=== PATIENT | female | born 1940 | race Caucasian/White ===

== ENCOUNTER 2023-09-29 11:27 | Outpatient (CLI) | payer MEDICARE, OTHER, SELFPAY ==
--- NOTE | 2023-09-29 12:00 | CT_ITS ---
WS: [id number] CT LUMBAR SPINE, noncontrast. HISTORY: Left-sided sciatica. TECHNIQUE: Contiguous 2.0 mm axial imaging are performed. Sagittal and coronal reformats are submitte d and reviewed. All CT scans at [facility] use at least one of these dose optimization techni ques: automated exposure control; mA and/or kV adjustment per patient size (includes targeted exams w here dose is matched to clinical indication); or iterative reconstruction. IV contrast: None DLP: 337.04 mGy.cm COMPARISON: None available. Severe scoliosis lumbar spine. There is marked RIGHT lateral subluxation of the L4 vertebral body by 1.8 cm. Invagination of the LEFT lateral L3 and L4 vertebral bodies with bony fusion. Disc spaces are all asymmetrically narrowed. Pseudoarthrosis RIGHT L5-S1. L1-2: Normal. L2-3: Mild disc bulging. No stenosis. L3-4: Osteophytic ridging and facet arthritis. No stenosis. L4-5: Asymmetric disc bulging. There is significant osteophyte encroachment upon the ventral canal an d the foramina. There are large osteophytes encroaching upon the subarticular recess. Severe central and bilateral subarticular recess and LEFT foraminal stenosis. There is a large osteophyte in the LEF T foramen contacting the exiting LEFT L4 nerve root. L5-S1: Osteophytic ridging and annular disc bulging. Facet joint arthritis. Mild LEFT and moderate RI GHT foraminal stenosis. Prior cholecystectomy. Atherosclerosis aorta. IMPRESSION: 1. Severe advanced degenerative scoliosis in the lower lumbar spine is chronic. 2. RIGHT lateral subluxation of L4. 3. LEFT lateral L3 and L4 vertebral bodies with contiguous bony fusion. 4. L4-5: Severe central, bilateral subarticular recess and LEFT foraminal stenosis. There is a large bony osteophyte in the LEFT foramen contacting the exiting LEFT L4 nerve root. 5. L5-S1: Moderate RIGHT and mild LEFT foraminal stenosis.
== END 2023-09-29 11:28 | disposition home or self-care (01) ==
LOC: RAD 11:28
PROVIDERS: PCP Nurse Practitioner Family; Visit Provider Family Medicine
DX: M51.27 Other intervertebral disc displacement, lumbosacral region (principal); M54.32 Sciatica, left side; M41.56 Other secondary scoliosis, lumbar region; M43.26 Fusion of spine, lumbar region; M48.07 Spinal stenosis, lumbosacral region; M25.78 Osteophyte, vertebrae
CPT/HCPCS: 72131

== ENCOUNTER → 2023-09-29 13:02 | Outpatient (BNVA) | payer MEDICARE, OTHER, SELFPAY | PROVIDERS: Family Provider Nurse Practitioner; PCP Nurse Practitioner; Visit Provider Dermatology | DX: Z85.828 Personal history of other malignant neoplasm of skin (principal); L82.1 Other seborrheic keratosis; L57.0 Actinic keratosis; S60.011A Contusion of right thumb without damage to nail, initial encounter; X58.XXXA Exposure to other specified factors, initial encounter; D18.01 Hemangioma of skin and subcutaneous tissue; L85.3 Xerosis cutis | CPT/HCPCS: 17000; 72131; 99203 ==

== ENCOUNTER → 2023-10-03 13:59 | Outpatient (BNVA) | payer MEDICARE, OTHER, SELFPAY | PROVIDERS: PCP Nurse Practitioner Family; Referring Provider Family Medicine; Visit Provider Orthopaedic Surgery | DX: M48.062 Spinal stenosis, lumbar region with neurogenic claudication (principal); M51.36 Other intervertebral disc degeneration, lumbar region; M41.50 Other secondary scoliosis, site unspecified | CPT/HCPCS: 72100; 99204 ==

== ENCOUNTER 2023-10-28 07:45 | Outpatient (CLI) | payer MEDICARE, OTHER, SELFPAY ==
--- NOTE | 2023-10-28 08:30 | IR_ITS ---
WS: [id number] LUMBAR MYELOGRAM HISTORY: lumbar pain COMPARISON: CT 09/29/2023 FLUOROSCOPY TIME: 6min [id number] # of spot films: 1 Procedure, risks and complications were explained to the patient. Risks including bleeding, infection , headaches, allergic reaction and seizures. Consent has been obtained. With the patient in prone position the skin over the lumbar region is cleansed with ChloraPrep and an esthetized with lidocaine. 22-gauge spinal needle is inserted into the thecal sac at several differen t levels. Unsuccessful at each level of entering the subarachnoid space. After the third attempt no a dditional levels were stopped. Large osteophytes were obstructing the needle path. Patient did complain of leg weakness and numbness after the procedure which slowly improved. Patient was directed to return to the radiology department or the emergency room if symptoms progressed. Nirmala ent's daughter was with her and they were proceeding to pain management from radiology. IMPRESSION: Unsuccessful attempt at lumbar myelogram. Access was attempted at 3 different levels. There is severe facet joint arthritis and osteophytosis obstructing the path of the needle.
== END 2023-10-28 07:46 | disposition home or self-care (01) ==
LOC: RAD 07:45
PROVIDERS: PCP Nurse Practitioner Family; Visit Provider Orthopaedic Surgery
DX: M51.36 Other intervertebral disc degeneration, lumbar region (principal); Z53.8 Procedure and treatment not carried out for other reasons; M47.816 Spondylosis without myelopathy or radiculopathy, lumbar region; M25.78 Osteophyte, vertebrae; G89.29 Other chronic pain; M41.9 Scoliosis, unspecified; M43.8X6 Other specified deforming dorsopathies, lumbar region
CPT/HCPCS: 62304; 99204; Q9966

== ENCOUNTER → 2023-11-11 12:30 | Outpatient (BNVA) | payer MEDICARE, OTHER, SELFPAY | PROVIDERS: PCP Nurse Practitioner Family; Visit Provider Orthopaedic Surgery | DX: M48.062 Spinal stenosis, lumbar region with neurogenic claudication (principal) | CPT/HCPCS: 36415; 80053; 81001; 85025; 99214 ==

== ENCOUNTER → 2023-12-02 14:04 | Outpatient (BNVA) | payer MEDICARE, OTHER, SELFPAY | PROVIDERS: PCP Nurse Practitioner Family; Visit Provider Family Medicine | DX: Z01.818 Encounter for other preprocedural examination (principal) | CPT/HCPCS: 93005 ==

== ENCOUNTER 2023-12-05 17:04 | Inpatient (IN) | payer MEDICARE, OTHER, SELFPAY ==
[2023-12-05] VITALS (21 sets, daily range): BP systolic 119–156; BP diastolic 68–98; PULSE 50–122; RESP 9–18; TEMP 35.8–36.5; O2SAT 94–100; BMI 24.3; BMI 24.8
[2023-12-05] MEDS: sodium chloride 0.9% 1,000 ML 30 ML IV (09:50)
[2023-12-05 10:19] LABS: Basophils % 0.2 %; Eosinophils % 0.6 %; Hematocrit 41.3 % (36-47); Lymphocytes # 1.9 10^3/uL (0.8-4.8); Lymphocytes % 29.4 %; Mean Corpuscular HGB Conc 32.4 g/dL (30-55); Mean Corpuscular Volume 98.6 fl (85-98); Mean Platelet Volume 10.6 fL (7.4-10.4); Monocytes # 0.7 10^3/uL (0.2-0.9); Monocytes % 10.8 %; Neutrophils # 3.74 10^3/uL (1.8-7.7); Neutrophils % 58.7 %; Nucleated Red Blood Cells % 0 %; Platelet Count 178 10^3/cmm (157-399); Red Blood Count 4.19 10^6/uL (3.85-5.65); Red Cell Distribution Width 13.8 % (12.1-15.1); White Blood Count 6.37 10^3/uL (3.29-11.43)
--- NOTE | 2023-12-05 10:34 | P.ANESASSM_ITS ---
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 Was Beta Kezia taken within 24 hours: N/A Was Clonidine taken within 24 hours: N/A Last intake: Intake Last Liquid Date 12/04/23 Last Liquid Time 23:59 Last Solid Date 12/04/23 Last Solid Time 17:00 Social No alcohol and No tobacco Exam alert, oriented x 3, clear to auscultation bilaterally and regular rate & rhythm Airway Mallampati: Class I Dentition: full Anesthetic Plan ASA status: 2 Anesthesia: General Risk of > 500 ml blood loss (7ml/kg in children): Yes, adequate IV access and fluids planned Medications/Allergies Home Medications Medication Instructions Recorded Confirmed Last Taken Type zinc 50 mg tablet 50 mg PO DAILY 11/20/21 12/04/23 12/04/23 History mecobalamin (vitamin B12) 2,500 2,500 mcg PO DAILY 07/15/23 12/04/23 12/04/23 History mcg chewable tablet multivitamin 1 tab PO DAILY 07/15/23 12/04/23 12/04/23 History ibuprofen 200 mg tablet 200 mg PO Q6H PRN Pain 09/11/23 12/04/23 Unknown History Bone Growth Stimulator #1 ea 12/01/23 Unknown Rx Allergies Allergy/AdvReac Type Severity Reaction Status Date / Time Sulfa (Sulfonamide Allergy Mild rash Verified 12/02/23 14:28 Antibiotics) Current Medications Generic Name Dose Route Start Last Admin Trade Name Freq PRN Reason Stop Dose Admin Sodium Chloride 1,000 mls @ 30 mls/hr 12/05/23 09:15 12/05/23 09:50 Sodium Chloride 0.9% IV 12/06/23 09:14 30 mls/hr .Q24H RADHA Administration PFSH Anesthesia Medical History DDD (degenerative disc disease), lumbar Arthritis of left hip Sinusitis Nasal congestion Excessive cerumen in left ear canal Otitis externa Hearing decreased Otitis media Social History Smoking and tobacco/nicotine status: never used tobacco/nicotine Second hand smoke exposure: No Alcohol intake: never Data Anesthesia 12/05/23 09:43 12/05/23 09:43 Short CBC 12/05/23 Range/Units 09:43 WBC 6.37 (3.29-11.43) 10^3/uL Hgb 13.40 (11.27-16.99) g/dL Hct 41.3 (36-47) % MCV 98.6 H (85-98) fl Plt Count 178 (157-399) 10^3/cmm Neut % (Auto) 58.7 % Neut # (Auto) 3.74 (1.8-7.7) 10^3/uL Cardiac Studies: 2 No Data to Display
--- NOTE | 2023-12-05 10:56 | W.PM.OPSUD ---
Surgery/Procedure H&P Update DATE OF PROCEDURE: December 05, 2023 DATE H&P PERFORMED: 12/02/23 H&P UPDATE INFORMATION: I have reviewed H&P completed within last 30 days, I have examined patient prior to procedure and No changes to prior documentation PLANNED PROCEDURE: Operation Date: 12/05/23 10:40 Proposed Procedures p Spinal Fusion PSF(Not Applicable) - DO gayatri Swartz Lumbopelvic Fixation(Not Applicable) - DO gayatri Swartz Sacroiliac Joint Fusion(Bilateral) - DO gayatri Swartz Lumbar Spine Decompression Lumbar Decompression(Not Applicable) - Cj Arias DO
[2023-12-05] MEDS: ceFAZolin 2,000 MG in sodium chloride 0.9% (plus) 50 ML 100 MG IV ×2 (11:13→15:34)
[2023-12-05] MEDS: lidocaine-epi 1% 20 mL INJ INJECTION (11:45)
[2023-12-05] MEDS: vancomycin 1,000 MG SDV 1000 MG XX (12:08)
[2023-12-05] MEDS: heparin, porcine 1,000 unit/mL INJ 10 mL 10000 UNIT XX (12:09)
--- NOTE | 2023-12-05 15:24 | PM.OP ---
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 Posterior fusion L2-pelvis 2.? Instrumentation L2-S1 3.? Lumbopelvic instrumentation 4. open right Sacral iliac fusion 5. open left sacral iliac fusion 6. L3/4 laminectomy with facetectomy 7. L4/5 laminectomy with facetectomy 8. use of computer navigation / stereotactic spine 9. use of autograft from same incision 10. allograft 11. Bone marrow aspirate from right iliac crest Surgeon: Cj Arias DO Estimated blood loss (mL): 500 Procedure: 1. Posterior fusion L2-pelvis 2.? Instrumentation L2-S1 3.? Lumbopelvic instrumentation 4. open right Sacral iliac fusion 5. open left sacral iliac fusion 6. L3/4 laminectomy with facetectomy 7. L4/5 laminectomy with facetectomy 8. use of computer navigation / stereotactic spine 9. use of autograft from same incision 10. allograft 11. Bone marrow aspirate from right iliac crest Patient is brought to the operative suite.? After undergoing anesthesia, the patient had neuro monitoring attached.? Patient was then placed in the prone position on the Zach table.? All areas of impingement were well-padded.? Patient was then prepped and draped in the normal sterile fashion.? Skin incision was then made over the L2 to the sacrum using previous skin incision.? Subperiosteal dissection was made out to the transverse processes of L2 bilaterally, L3 bilaterally,?L4 bilaterally L5 bilaterally and sacral ala bilaterally.? The [employer] bone marrow aspirate kit was used to aspirate bone marrow aspirate.? This was done by using the sharp probe to open up the bone.? Aspiration was performed and then the blunt probe was then used to dissect down to through the bone tunnel.? An aspirating well drawn back a millimeter approximately 20 cc of bone marrow aspirate was used.? Admixed with the allograft and autograft bone that will be used. Next tension was brought to placing the fiducial for the computer navigation.? 2 pins were placed into the right iliac crest.? The fiducial was attached.? The C-arm was brought in and information from the C arm was then linked to the computer used for placing the screws.? Next attention was brought to placing the pedicle screws.? This was done by using the gearshift probe linked to computer navigation.? The probe was used to identify the pedicle.? Then the pedicle feeler was used followed by placement of screw.? This was done at L2 bilaterally, L3 bilaterally L4 bilaterally, L5 bilaterally and S1 bilaterally. Next attension was brought to placing the iliac screws.? This was done using the sacral ala iliac technique.? The gearshift probe linked to computer navigation was then placed through the sacral ala into the sacroiliac joint into the iliac crest.? Next the pedicle feeler was used followed by the computer navigated tap.? And then the screw was passed a 80 mm screw was placed on the right side and a 80 mm screw was placed on the left side.? Both the screws were 9.5 mm in diameter. Next attension was brought to performing the open and sacral iliac fusion.? This was done by again using the gearshift probe linked to computer navigation.? Followed by pedicle feeler followed by placing a wire and then the drill drilled over the wire and then bone graft was packed into the sacroiliac joint and into the drill hole.? And the sacroiliac screw was then placed.? This technique was done on both the right and left side. Next attention was brought to the L4/5 laminectomy of the facet joint. This was done by performing the laminectomy using high-speed bur and taken of facet joints. The previous laminectomy site was identified and delineated with curved curette and Bovie. Kerrison was then used to take down the remaining lamina as well as the medial aspect of facet joints. Ligamentum flavum was taken down from 4/5. The L5 nerve root was traced around the L5 pedicle and the L4 nerve root was traced out the L4/5 foramen which the superior articular processes were taken down in order to unroofed the foramen. There was a dural tear that occurred. There was a stitch was used to repair probable rest Gelfoam and just gentle DuraSeal were used.. Attention was then brought to the L3-4 level the laminectomy was performed using high-speed bur as well as Curettes and Kerrison rongeur. The dura was scarred down on the L3-4 level on the left side. This was taken down medially. The right side was also opened up along the medial aspect of the facet joint. Again using the high-speed bur and curved curettes and Kerrison rongeurs. The L3 nerve was traced out the L3-4 foramen the L4 nerve was traced around the L4 pedicle. Dural tear occurred and a DuraGen patch was used to repair it. Attention was then brought to attaching the rods to the screws placed in the L2 bilaterally, L3 bilaterally, L4 bilaterally, L5 bilaterally and S1 bilaterally.? This was then attached to the sacroiliac screw providing the lumbopelvic fixation.? Caps were torqued into position. Locking the construct in place. Wound was copiously irrigated and then attention was brought to decorticating the facets and transverse processes laterally.? Bone that was taken down from the lamina was used along with osteoamp fibers and sponges were packed into the lateral gutters along the facet joints.? This was done bilaterally. Wound was then closed in a layered fashion starting with the thoracolumbar fascia.? 0-vicryl was used the sub cutaneous tissue was closed with 2-0 vicryl and skin with 4-0 monocryl.? Glue was then used to seal the skin and a steril dressing was applied.? Patient was then placed in the supine position. The endotracheal tube was removed and patient was transferred to the PACU in stable condition.
--- NOTE | 2023-12-05 15:33 | XR_ITS ---
WS: [id number] Lumbar spine, C-arm fluoroscopy images, 12/05/2023 Clinical Data: OR PICS Comparison: None. Findings: Dr. Arias performed a posterior thoracolumbar sacral fusion. Impression: Posterior thoracolumbar sacral fusion.
--- NOTE | 2023-12-05 16:00 | SUR.PHASEI ---
Patient in PACU, wakes but still very drowsy. Patient has simple mask on with sats at 100%. Patient able to move all extremities. patient is laying flat on back in bed.
--- NOTE | 2023-12-05 16:06 | SUR.PHASEI ---
right radial art line removed at 1601, pressure held for 5 minutes. wrapped with coban
[2023-12-05] MEDS: fentaNYL 50 mcg/mL INJ 2mL IVP (16:21)
[2023-12-05] MEDS: sodium chloride 0.9% 1,000 ML 100 ML IV (16:53)
--- NOTE | 2023-12-05 17:05 | ANE.PACU2 ---
Inpatient post-anesthesia follow up: Airway intact: Yes Vital signs: Temperature 98.2 F Pulse Rate 91 Respiratory Rate 16 Blood Pressure 114/59 Pulse Oximetry 96 Oxygen Delivery Me thod Nasal Cannula Oxygen Flow Rate 2 Fraction of Inspir ed Oxygen Hydration adequate: Yes Nausea and vomiting: No Pain level: 1 Mental status: Baseline
--- NOTE | 2023-12-05 17:23 | SUR.PHASEI ---
patient taken to room 271. report called to Fe MORENO. patient in floor bed. Patient awake but still drowsy. 3l nc on transport. patient able to move arms and legs. patient had small skin tear to right cheek from anesthesia tape, ANN MARIE applied in pacu, reported to patients daughter. Patients IVs intact. Reyes draining. Patient laying flat and instructed to lay flat, family notified of instruction to lay flat for 24h.
[2023-12-05] MEDS: docusate sodium 100 mg Capsule PO (17:34)
[2023-12-05] MEDS: HYDROcodone-acetaminophen 5-325 mg Tablet PO (17:34)
[2023-12-05] MEDS: lactated ringers 1,000 ML 90 ML IV (17:35)
[2023-12-05] MEDS: ketorolac 30 mg/mL INJ IVP (18:18)
--- NOTE | 2023-12-05 18:31 | ECG_ITS ---
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 Measurements Intervals [place] Rate: 108 P: 0 ME: 0 QRS: 62 QRSD: 81 T: 56 QT: 353 QTc: 474 Interpretive Statements ATRIAL FIBRILLATION WITH RAPID VENTRICULAR RESPONSE MINIMAL ST DEPRESSION [0.025+ mV ST DEPRESSION] ABNORMAL RHYTHM ECG Compared to ECG 12/02/2023 14:19:07 ST (T wave) deviation now present Sinus rhythm no longer present Atrial abnormality no longer present T-wave abnormality no longer present Electronically Signed On 12-05-2023 23:11:13 CDT by Edy Ulloa M.D. [id number]
[2023-12-05] MEDS: ondansetron 2 mg/ML SDV 2 mL 4 MG IVP (19:00)
[2023-12-05] MEDS: morphine 4 mg/mL SDV 1 mL 2 MG IVP ×2 (19:12→22:25)
--- NOTE | 2023-12-05 19:38 | P.CONIM_ITS ---
Providers/Reason For Consult 2 Consulting Physician/Specialty*: Alec Rocha - Internal Medicine Reason for Consult*: Atrial fibrillation with rapid ventricular rate Requesting Physician: Dr Arias Attending Physician: Cj Arias DO Primary Care Provider: NICHOLAS Abraham History of Present Illness History of Present Illness Anjali Khan is a 83 year old female with a past medical history significant for degenerative disc disease, lumbar stenosis, neurogenic claudication, and multiple other comorbidities who presents post-op from back surgery by Dr Arias on 12/05/23 to med/surg for post-op care. On postop assessment, patient was found to be tachycardic. EKG obtained and found to have atrial fibrillation with rapid ventricular rate. Patient denies any known history of atrial fibrillation. Denies any known history of other cardiac arrhythmias. Denies any history of heart disease. Reports her father from a myocardial infarction in his 80s. She currently endorses low back pain. She just recently got some morphine prior to evaluation. Also endorses associated symptoms of nausea/upset stomach. She received Zofran about an hour ago. She denies chest pain, shortness of breath, or palpitations.. Daughter and are bedside and seem supportive. Review of Systems 2 Narrative: A complete review of systems was obtained and is negative except as stated in HPI. Medications/Allergies Home Medications Medication Instructions Recorded Confirmed Last Taken Type zinc 50 mg tablet 50 mg PO DAILY 11/20/21 12/04/23 12/04/23 History mecobalamin (vitamin B12) 2,500 2,500 mcg PO DAILY 07/15/23 12/04/23 12/04/23 History mcg chewable tablet multivitamin 1 tab PO DAILY 07/15/23 12/04/23 12/04/23 History ibuprofen 200 mg tablet 200 mg PO Q6H PRN Pain 09/11/23 12/04/23 Unknown History Bone Growth Stimulator #1 ea 12/01/23 Unknown Rx Allergies Allergy/AdvReac Type Severity Reaction Status Date / Time Sulfa (Sulfonamide Allergy Mild rash Verified 12/02/23 14:28 Antibiotics) Current Medications Generic Name Dose Route Start Last Admin Trade Name Freq PRN Reason Stop Dose Admin Hydrocodone Bitart/Acetaminophen 1 - 2 tab 12/05/23 15:28 12/05/23 17:34 Hydrocodone-Acetaminophen 5-325 Mg Tablet PO 2 tab Q4H PRN Administration MODERATE TO SEVERE PAIN Docusate Sodium 100 mg 12/05/23 18:00 12/05/23 17:34 Docusate Sodium 100 Mg Capsule PO 100 mg BID RADHA Administration Lactated Ringer's 1,000 mls @ 90 mls/hr 12/05/23 15:30 12/05/23 17:35 Lactated Ringers IV 90 mls/hr .Q11H7M RADHA Administration Ketorolac Tromethamine 30 mg 12/05/23 15:28 12/05/23 18:18 Ketorolac 30 Mg/Ml Inj IVP 30 mg Q6H PRN Administration BREAKTHROUGH PAIN Morphine Sulfate 2 mg 12/05/23 15:28 12/05/23 19:12 Morphine 4 Mg/Ml Sdv 1 Ml IVP 2 mg Q1H PRN Administration SEVERE PAIN Ondansetron HCl 4 mg 12/05/23 15:28 12/05/23 19:00 Ondansetron 2 Mg/Ml Sdv 2 Ml IVP 4 mg Q6H PRN Administration NAUSEA AND VOMITING PFSH Acute 2 PFSH: Medical History DDD (degenerative disc disease), lumbar Arthritis of left hip Sinusitis Nasal congestion Excessive cerumen in left ear canal Otitis externa Hearing decreased Otitis media Surgical History History of back surgery Family History Father Heart disease Myocardial infarction Social History Smoking and tobacco/nicotine status: never used tobacco/nicotine Second hand smoke exposure: No Alcohol intake: never Substance/Drug Use: never Vitals/I&O/Wt Last Vital Signs Temp 97.1 F L 12/05/23 18:15 Pulse 104 H 12/05/23 18:15 Resp 16 12/05/23 19:12 BP 146/92 12/05/23 18:15 Pulse Ox 97 12/05/23 19:12 O2 Del Method Room Air 12/05/23 18:15 O2 Flow Rate 1.5 12/05/23 19:20 04/12/24 04/12/24 04/12/24 06:59 14:59 22:59 Intake Total 1050 / 1050 2700 / 3750 Output Total 1400 / 1400 Balance 1050 / 1050 1300 / 2350 Weight last 48 hrs Weight 71.894 kg Weight 70.307 kg Physical Exam 2 Narrative: General: Patient is awake. Frail appearing. Head: Normocephalic. Atraumatic. EOM intact. Neck: No JVD. Cardiovascular: Irregularly irregular rhythm. No gallops. Systolic murmur. No peripheral edema. Lungs: Clear to auscultation, no use of accessory muscles, no crackles or wheezes. Skin: No jaundice. No rashes. Abdomen: Normal bowel sounds, abdomen soft and nontender. Genito Urinary: Genital exam not performed since complaints not related. Rectal: Rectal exam not performed since no symptoms indicated blood loss. Extremities: No cyanosis or clubbing. Musculoskeletal: No swollen or erythematous joints. Neurological: No myoclonus. Urinary Catheter Management: Reyes: Cath Placed During This Visit: yes Reason for Continuing Indwelling Catheter: Other Urinary Catheter Date of Insertion: 12/05/23 Urinary Catheter Time of Insertion: 11:25 Data 12/05/23 09:43 12/05/23 09:43 A&P Assessment and plan (1) Atrial fibrillation with rapid ventricular response: Post-op paroxysmal a-fib w/ rvr Telemetry monitoring [id number] of at least 3 (age, sex) Hold off on consideration of anticoagulation given post-op state Check electrolytes Start metoprolol tartrate 12.5 mg PO BID Obtain echocardiogram (2) History of back surgery: Per primary Plan Thank you for this consult. Hospitalist service will follow. Consult Attestations 2 Medical Necessity Statement: Per primary Coding Level of Care Code Acute Code for Chg Fwd Diagnoses Atrial fibrillation with rapid ventricular response I48.91 History of back surgery Z98.890
[2023-12-05 20:51] LABS: Albumin Level 3.1 g/dL (3.5-5.2); Anion Gap 14.6 (5-19); Blood Urea Nitrogen 15 mg/dL (8-23); Calcium 8.4 mg/dL (8.5-10.5); Carbon Dioxide 22 mmol/L (22-29); Chloride 109 mmol/L (98-107); Creatinine Clr Calc Pharmacy 54.3083; Glucose 147 mg/dL (65-115); Magnesium 1.6 mg/dL (1.7-2.3); Phosphorus 3.9 mg/dL (2.5-4.5); Potassium 4.6 mmol/L (3.5-5.1); Sodium 141 mmol/L (136-145)
[2023-12-05] MEDS: prochlorperazine 10 mg/2 mL Inj 5 MG IVP (22:24)
[2023-12-06] VITALS (13 sets, daily range): BP systolic 99–155; BP diastolic 53–73; PULSE 71–108; RESP 14–18; TEMP 36.4–37.5; O2SAT 93–97
[2023-12-06] MEDS: ceFAZolin 2,000 MG in sodium chloride 0.9% (plus) 50 ML 100 MG IV ×3 (00:31→16:22)
[2023-12-06] MEDS: ketorolac 30 mg/mL INJ IVP (00:39)
--- NOTE | 2023-12-06 01:57 | PC.RESP ---
patient has to remain supine for 24hours post sugery, unable to perform IS effectively at this time. Daughter at bedside, notified. No resp distress noted. Vitals taken.
[2023-12-06] MEDS: magnesium sulfate premix 2 GM/50 ML PIGGYBACK IV (03:00)
[2023-12-06] MEDS: lactated ringers 1,000 ML 90 ML IV ×2 (04:29→15:53)
--- NOTE | 2023-12-06 06:00 | USCV_ITS ---
Anjali Khan Age: 83 Gender: F : 1940 Exam Date: 12/06/2023 08:30 Ordering Phys: Alec Rocha MD Technologist: Daniel Lucas Exam Location: [facility] [place] Indication: post op a fib BP: 106 / 57 HR: 76 Rhythm: Sinus Technical Quality: Adequate MEASUREMENTS (Male / Female) Normal Values 2D ECHO LV Diastolic Diameter PLAX 4.7 cm 4.2 - 5.9 / 3.9 - 5.3 cm IVS Diastolic Thickness 0.9 cm 0.6 - 1.0 / 0.6 - 0.9 cm IVS Systolic Thickness 1.7 cm LVPW Diastolic Thickness 1.0 cm 0.6 - 1.0 / 0.6 - 0.9 cm LVPW Systolic Thickness 1.5 cm LVOT Diameter 2.0 cm LV Ejection Fraction 2D Teich 84.1 % LV Ejection Fraction MOD 2C 62.7 % LV Ejection Fraction 2C AL 63.7 % LA Diameter 3.2 cm RA Systolic Volume 4C AL 58.3 ml RA Systolic Volume 4C MOD 57.1 ml LA Sys Volume AL 41.4 cm cubed LA Sys Volume Index AL 22.4 cm cubed/m squared Aorta at Sinotubular Diameter 2.8 cm IVC Diameter 1.7 cm M-MODE LA Ao Ratio MM 1.2 AV Cusp Separation MM 1.7 cm DOPPLER AV Peak Velocity 149.0 cm/s LVOT Peak Velocity 109.0 cm/s AV Area Cont Eq vti 2.5 cm squared AV Area Cont Eq pk 2.3 cm squared MV Peak Velocity 143.0 cm/s MV Area PHT 3.8 cm squared Mitral E to A Ratio 0.9 TV Peak Velocity 404.3 cm/s TR Peak Velocity 437.0 cm/s TR Peak Gradient 76.4 mmHg TR Mean Velocity 310.0 cm/s TR Mean Gradient 44.1 mmHg TR Velocity Time Integral 131.3 cm PV Peak Velocity 72.0 cm/s RV Ejection Time 0.3 s FINDINGS Left Ventricle Normal left ventricular size and systolic function, EF 65%. No gross wall motion abnormalities. Right Ventricle Right ventricular paced to be upper limit of normal size with normal ejection fraction. Right Atrium Mildly dilated right atrium Left Atrium Normal chamber size. Mitral Valve Mild mitral valve regurgitation. Aortic Valve No gross abnormalities noted Tricuspid Valve Moderate eccentric tricuspid regurgitation. Estimated pulmonary artery peak systolic pressure of 79 mmHg with a mean pressure of 47 mmHg Pulmonic Valve Trace pulmonary valve regurgitation. Pericardium Normal pericardium without effusion. Aorta Normal ascending aorta dimension. IVC Normal inferior vena cava. CONCLUSIONS Normal left ventricular size and systolic function, EF 65%. Normal left ventricular size and systolic function, EF 65%. No gross wall motion abnormalities. Moderate eccentric tricuspid regurgitation. Severe pulmonary hypertension with an estimated pulmonary artery peak systolic pressure of 79 mmHg and a mean pressure of 47 mmHg. Mild mitral valve regurgitation. Trace pulmonary valve regurgitation. There is no pericardial effusion. There are no intracardiac masses. No similar previous studies are available for comparison Dr Ceferino Rivera MD [facility] (Electronically Signed) Final Date: 06 December 2023 16:09 S
[2023-12-06] MEDS: HYDROcodone-acetaminophen 5-325 mg Tablet PO ×2 (07:34→20:57)
[2023-12-06] MEDS: ondansetron 2 mg/ML SDV 2 mL 4 MG IVP (07:51)
[2023-12-06] MEDS: multivitamin therapeutic Tablet 1 TAB PO (08:08)
[2023-12-06] MEDS: docusate sodium 100 mg Capsule PO ×2 (08:08→17:57)
[2023-12-06] MEDS: zinc gluconate 50 mg Tablet PO (08:08)
[2023-12-06] MEDS: metoprolol tartrate 25 mg Tablet 12.5 MG PO ×2 (08:10→20:58)
--- NOTE | 2023-12-06 08:39 | PC.PHAR ---
pts daughter verified pts medication-pts daughter states the pt is not taking ultram 50mg bid prn filled 10/28/23 23d/s and gabapentin 300mg tid filled 10/03/23 30d/s-pts daughter states the pt is just taking the medications entered
[2023-12-06] MEDS: morphine 4 mg/mL SDV 1 mL 2 MG IVP ×2 (10:20→15:06)
--- NOTE | 2023-12-06 12:00 | PM.PN ---
Subjective Subjective: Patient seen at the bedside and has no new complaints. She denies chest pain, shortness of breath, palpitation. Vitals/I&O/Wt Last Vital Signs Temp 97.7 F 12/06/23 07:32 Pulse 99 12/06/23 07:32 Resp 18 12/06/23 10:20 BP 106/57 12/06/23 07:32 Pulse Ox 94 12/06/23 10:20 O2 Del Method Nasal Cannula 12/06/23 07:32 O2 Flow Rate 2 12/06/23 08:00 12/05/23 12/06/23 12/06/23 22:59 06:59 14:59 Intake Total 2700 / 3750 1081 / 4831 50 / 50 Output Total 1400 / 1400 100 / 1500 200 / 200 Balance 1300 / 2350 981 / 3331 -150 / -150 Weight last 48 hrs Weight 71.894 kg Weight 71.894 kg Weight 70.307 kg Physical Exam Const: COMMON NORMALS: no acute distress, patient oriented x3 and alert HENMT: COMMON NORMALS: normocephalic, atraumatic, external ears normal, Normal external nose present, moist oral mucous membranes and oropharynx normal HEAD & SCALP: normocephalic and atraumatic NOSE: Normal external nose present EXTERNAL EAR: Yes external ears normal Eye: COMMON NORMALS: Equal, round and reactive pupils present, EOMs intact bilaterally, conjunctivae normal and no scleral icterus CONJUNCTIVA: Yes conjunctivae normal PUPIL: Yes Equal, round and reactive pupils present Neck/C-Spine: COMMON NORMALS: full ROM, no lymphadenopathy and no JVD Chest: COMMONS NORMALS: normal inspection of the chest Resp: COMMON NORMALS: normal respiratory effort and clear to auscultation bilaterally AUSCULTATION: clear to auscultation bilaterally OTHER: No wheezes or crcakles Cardio: COMMON NORMALS: no JVD OTHER: S1, S2, irregular rate and rhythm GI: COMMON NORMALS: Normal to inspection, nondistended, normoactive bowel sounds present, Soft to palpation and non-tender PALPATION: Yes Soft to palpation Extremity: COMMON NORMALS: normal to inspection and no pedal edema Neuro: COMMON NORMALS: patient oriented x3 SENSORIUM/ORIENTATION: Yes alert OTHER: No gross focal deficits Urinary Catheter Management: Reyes: Cath Placed During This Visit: yes Reason for Continuing Indwelling Catheter: Required Immobilization for Trauma or Surgery or Anesthesia Urinary Catheter Date of Insertion: 12/05/23 Urinary Catheter Time of Insertion: 11:25 Data 12/05/23 09:43 12/05/23 20:25 A&P Assessment and plan (1) Atrial fibrillation with rapid ventricular response: -Patient developed paroxysmal atrial fibrillation with RVR post surgery -Patient has no prior history of atrial fibrillation -Patient started on metoprolol p.o. 12.5 mg twice daily, heart rate is improved. Will uptitrate dose to 25 mg twice daily as appropriate. -Echo ordered and is pending -Continue telemetry monitoring -Patient's [id number] is at least 3, will plan to start Eliquis for anticoagulation when appropriate post surgery. This was discussed with patient's daughter. -Continue to monitor, continue the supportive care (2) History of back surgery: Per primary Plan Thank you for this consult. Hospitalist service will follow. Attestations Medical Necessity Statement*: Patient requires inpatient stay for telemetry monitoring of atrial fibrillation with RVR. Coding Level of Care Code Acute Code for [facility] Fwd Diagnoses Atrial fibrillation with rapid ventricular response I48.91 History of back surgery Z98.890
--- NOTE | 2023-12-06 12:18 | PM.PN ---
Subjective Subjective: Patient is sitting up in bed no headaches. 100 feet. At this point she is complaining of back and leg pain. Vitals/I&O/Wt Last Vital Signs Temp 97.7 F 12/06/23 07:32 Pulse 99 12/06/23 07:32 Resp 18 12/06/23 10:20 BP 106/57 12/06/23 07:32 Pulse Ox 94 12/06/23 10:20 O2 Del Method Nasal Cannula 12/06/23 07:32 O2 Flow Rate 2 12/06/23 08:00 12/05/23 12/06/23 12/06/23 22:59 06:59 14:59 Intake Total 2700 / 3750 1081 / 4831 50 / 50 Output Total 1400 / 1400 100 / 1500 200 / 200 Balance 1300 / 2350 981 / 3331 -150 / -150 Weight last 48 hrs Weight 158 lb 8 oz Weight 158 lb 8 oz Weight 155 lb Physical Exam Narrative: Patient is good strength in her legs incision intact. Pain feels different than before surgery. Urinary Catheter Management: Reyes: Cath Placed During This Visit: yes Reason for Continuing Indwelling Catheter: Required Immobilization for Trauma or Surgery or Anesthesia Urinary Catheter Date of Insertion: 12/05/23 Urinary Catheter Time of Insertion: 11:25 Data 12/05/23 09:43 12/05/23 20:25 A&P Assessment and plan (1) History of back surgery: Patient is postop day 1. Keep her in bed today we will give her bathroom privileges however. At this point would like to keep her off blood thinners for couple days to allow for wound healing as well as cerebrospinal fluid leak to coagulate. Watch for headaches. Will start getting her up with physical therapy tomorrow. Case management consult on Friday for care home placement Attestations Medical Necessity Statement*: Pain control Coding Level of Care Code Acute Code for [facility] Fwd Diagnoses History of back surgery Z98.890
[2023-12-07] VITALS (7 sets, daily range): BP systolic 94–124; BP diastolic 57–68; PULSE 82–111; RESP 16–18; TEMP 36.3–36.9; O2SAT 93–97; BMI 24.8
[2023-12-07] MEDS: ketorolac 30 mg/mL INJ IVP ×2 (01:51→13:38)
[2023-12-07 03:09] LABS: Basophils % 0.1 %; Hematocrit 28.5 % (36-47); Lymphocytes # 1.4 10^3/uL (0.8-4.8); Lymphocytes % 11.6 %; Mean Corpuscular HGB Conc 32.6 g/dL (30-55); Mean Corpuscular Hemoglobin 32.2 pg (27-33); Mean Corpuscular Volume 98.6 fl (85-98); Mean Platelet Volume 10.9 fL (7.4-10.4); Monocytes # 0.6 10^3/uL (0.2-0.9); Monocytes % 5.1 %; Neutrophils # 10.26 10^3/uL (1.8-7.7); Neutrophils % 82.6 %; Nucleated Red Blood Cells % 0 %; Platelet Count 118 10^3/cmm (157-399); Red Blood Count 2.89 10^6/uL (3.85-5.65); Red Cell Distribution Width 13.9 % (12.1-15.1); White Blood Count 12.42 10^3/uL (3.29-11.43)
[2023-12-07 03:26] LABS: Anion Gap 11.5 (5-19); Blood Urea Nitrogen 19 mg/dL (8-23); Carbon Dioxide 23 mmol/L (22-29); Chloride 111 mmol/L (98-107); Creatinine Clr Calc Pharmacy 54.3083; Glucose 116 mg/dL (65-115); Phosphorus 1.9 mg/dL (2.5-4.5); Potassium 4.5 mmol/L (3.5-5.1); Sodium 141 mmol/L (136-145)
[2023-12-07] MEDS: HYDROcodone-acetaminophen 5-325 mg Tablet PO ×3 (04:52→20:55)
[2023-12-07] MEDS: lactated ringers 1,000 ML 90 ML IV ×2 (04:52→16:06)
[2023-12-07] MEDS: ondansetron 2 mg/ML SDV 2 mL 4 MG IVP (04:56)
--- NOTE | 2023-12-07 08:54 | P.PN_ITS ---
Subjective 2 Subjective: Patient seen at the bedside and has no new complaints. She denies chest pain, shortness of breath, palpitation. . Vitals/I&O/Wt Last Vital Signs Temp 97.9 F 12/07/23 07:54 Pulse 94 12/07/23 07:54 Resp 16 12/07/23 07:54 BP 111/61 12/07/23 07:54 Pulse Ox 93 12/07/23 07:54 O2 Del Method Nasal Cannula 12/07/23 07:54 O2 Flow Rate 1 12/07/23 07:54 12/06/23 12/07/23 12/07/23 22:59 06:59 14:59 Intake Total 1050 / 1100 1000 / 2100 Output Total 450 / 650 250 / 900 Balance 600 / 450 750 / 1200 Weight last 48 hrs Weight 71.94 kg Weight 71.894 kg Weight 71.894 kg Weight 70.307 kg Physical Exam 2 Const: COMMON NORMALS: no acute distress, patient oriented x3 and alert HENMT: COMMON NORMALS: normocephalic, atraumatic, external ears normal, Normal external nose present, moist oral mucous membranes and oropharynx normal HEAD & SCALP: normocephalic and atraumatic NOSE: Normal external nose present E XTERNAL EAR: Yes external ears normal Eye: COMMON NORMALS: Equal, round and reactive pupils present, EOMs intact bilaterally, conjunctivae normal and no scleral icterus CONJUNCTIVA: Yes conjunctivae normal PUPIL: Yes Equal, round and reactive pupils present Neck/C-Spine: COMMON NORMALS: full ROM, no lymphadenopathy and no JVD Chest: COMMONS NORMALS: normal inspection of the chest Resp: COMMON NORMALS: normal respiratory effort and clear to auscultation bilaterally AUSCULTATION: clear to auscultation bilaterally OTHER: No wheezes or crcakles Cardio: COMMON NORMALS: no JVD OTHER: S1, S2, regular rate and rhythm GI: COMMON NORMALS: Normal to inspection, nondistended, normoactive bowel sounds present, Soft to palpation and non-tender PALPATION: Yes Soft to palpation Extremity: COMMON NORMALS: normal to inspection and no pedal edema Neuro: COMMON NORMALS: patient oriented x3 SENSORIUM/ORIENTATION: Yes alert OTHER: No gross focal deficits Urinary Catheter Management: Reyes: Cath Placed During This Visit: yes Reason for Continuing Indwelling Catheter: Required Immobilization for Trauma or Surgery or Anesthesia Urinary Catheter Date of Insertion: 12/05/23 Urinary Catheter Time of Insertion: 11:25 Data 12/07/23 02:37 12/07/23 02:37 A&P Assessment and plan (1) Atrial fibrillation with rapid ventricular response: -Patient developed paroxysmal atrial fibrillation with RVR post surgery -Patient has no prior history of atrial fibrillation -Patient started on metoprolol p.o. 12.5 mg twice daily, heart rate is improved. Will uptitrate dose to 25 mg twice daily as appropriate. -TTE - Normal EF- 65%, no WMAs, moderate TR, severe pulmonary hypertension -Continue telemetry monitoring -Patient's [id number] is at least 3, will plan to start Eliquis for anticoagulation when appropriate post surgery. This was discussed with patient's daughter. -Continue to monitor, continue the supportive care (2) History of back surgery: Per primary Plan #Anemia -Likely from blood loss post surgery, there might also be a dilutional component -Trend Hgb -Patient may need blood transfusion Thank you for this consult. Hospitalist service will follow. Attestations 2 Medical Necessity Statement*: Patient to continue inpatient care per surgical team Coding Level of Care Code Acute Code for [facility] Fwd Diagnoses Atrial fibrillation with rapid ventricular response I48.91 History of back surgery Z98.890
[2023-12-07] MEDS: metoprolol tartrate 25 mg Tablet 12.5 MG PO ×2 (08:58→20:54)
[2023-12-07] MEDS: docusate sodium 100 mg Capsule PO (08:58)
[2023-12-07] MEDS: zinc gluconate 50 mg Tablet PO (08:59)
[2023-12-07] MEDS: multivitamin therapeutic Tablet 1 TAB PO (08:59)
--- NOTE | 2023-12-07 10:57 | PM.PN ---
Subjective Subjective: Patient seen by physical therapy they recommend care home. Patient is complaining of back pain and pain rating down her leg to her thigh does not go any further than that anymore. Which is improved since surgery. Patient complained of a headache on the left side next to her eye. Swelling has significantly improved. Patient did have confusion last night where she was. At this point we will stop the morphine. Vitals/I&O/Wt Last Vital Signs Temp 97.9 F 12/07/23 07:54 Pulse 94 12/07/23 07:54 Resp 16 12/07/23 07:54 BP 111/61 12/07/23 07:54 Pulse Ox 93 12/07/23 07:54 O2 Del Method Nasal Cannula 12/07/23 07:54 O2 Flow Rate 1 12/07/23 07:54 12/06/23 12/07/23 12/07/23 22:59 06:59 14:59 Intake Total 1050 / 1100 1000 / 2100 240 / 240 Output Total 450 / 650 250 / 900 Balance 600 / 450 750 / 1200 240 / 240 Weight last 48 hrs Weight 158 lb 9.6 oz Weight 158 lb 8 oz Weight 158 lb 8 oz Physical Exam Narrative: Patient is sitting up in chair comfortable pain controlled at this point. Urinary Catheter Management: Reyes: Cath Placed During This Visit: yes Reason for Continuing Indwelling Catheter: Required Immobilization for Trauma or Surgery or Anesthesia Urinary Catheter Date of Insertion: 12/05/23 Urinary Catheter Time of Insertion: 11:25 Data 12/07/23 02:37 12/07/23 02:37 A&P Assessment and plan (1) History of back surgery: Postop day #2 L2 to the pelvis fusion. Continue to work with physical therapy. Hold off on any blood thinners until postop day #4. Discharge planning to care home Attestations Medical Necessity Statement*: Pain control Coding Level of Care Code Acute Code for [facility] Fwd Diagnoses History of back surgery Z98.890
[2023-12-07] MEDS: trazodone 50 mg Tablet 25 MG PO (20:55)
[2023-12-08] VITALS (7 sets, daily range): BP systolic 113–131; BP diastolic 57–78; PULSE 69–110; RESP 16–18; TEMP 36.4–37; O2SAT 94–98
[2023-12-08] MEDS: HYDROcodone-acetaminophen 5-325 mg Tablet PO ×2 (02:30→08:47)
[2023-12-08] MEDS: lactated ringers 1,000 ML 90 ML IV (02:30)
[2023-12-08] MEDS: metoprolol tartrate 25 mg Tablet 12.5 MG PO (03:56)
[2023-12-08 03:57] LABS: Basophils % 0.2 %; Eosinophils % 0.3 %; Hematocrit 30.6 % (36-47); Lymphocytes # 1.4 10^3/uL (0.8-4.8); Lymphocytes % 10.4 %; Mean Corpuscular HGB Conc 31.7 g/dL (30-55); Mean Corpuscular Hemoglobin 31.9 pg (27-33); Mean Corpuscular Volume 100.7 fl (85-98); Mean Platelet Volume 11.3 fL (7.4-10.4); Monocytes # 0.8 10^3/uL (0.2-0.9); Neutrophils # 10.77 10^3/uL (1.8-7.7); Nucleated Red Blood Cells % 0 %; Platelet Count 131 10^3/cmm (157-399); Red Blood Count 3.04 10^6/uL (3.85-5.65); White Blood Count 13.12 10^3/uL (3.29-11.43)
[2023-12-08 04:09] LABS: Albumin Level 2.9 g/dL (3.5-5.2); Anion Gap 9.6 (5-19); Blood Urea Nitrogen 27 mg/dL (8-23); Calcium 9.6 mg/dL (8.5-10.5); Carbon Dioxide 26 mmol/L (22-29); Chloride 110 mmol/L (98-107); Creatinine Clr Calc Pharmacy 54.3235; Glucose 117 mg/dL (65-115); Phosphorus 1.5 mg/dL (2.5-4.5); Potassium 4.6 mmol/L (3.5-5.1); Sodium 141 mmol/L (136-145)
--- NOTE | 2023-12-08 07:30 | P.PN_ITS ---
Subjective 2 Subjective: Patient unable to sleep at night. Pain relatively controlled. Difficulty walking with physical therapy Vitals/I&O/Wt Last Vital Signs Temp 98.6 F 12/08/23 03:51 Pulse 69 12/08/23 05:33 Resp 18 12/08/23 03:51 BP 131/78 12/08/23 03:51 Pulse Ox 98 12/08/23 03:51 O2 Del Method Nasal Cannula 12/08/23 03:51 O2 Flow Rate 1 12/07/23 16:00 12/07/23 12/08/23 12/08/23 22:59 06:59 14:59 Intake Total 1170 / 4250 936 / 5186 Output Total 500 / 1450 Balance 1170 / 3300 436 / 3736 Weight last 48 hrs Weight 158 lb 9.6 oz Physical Exam 2 Narrative: Sitting up in chair. Alert and oriented Urinary Catheter Management: Reyes: Cath Placed During This Visit: yes Reason for Continuing Indwelling Catheter: Other Urinary Catheter Date of Insertion: 12/05/23 Urinary Catheter Time of Insertion: 11:25 Data 12/08/23 02:46 12/08/23 02:46 A&P Assessment and plan (1) History of back surgery: Postop day #3 spine fusion. Discharge planning Attestations 2 Medical Necessity Statement*: Pain control Coding Level of Care Code Acute Code for [facility] Fwd Diagnoses History of back surgery Z98.890
[2023-12-08] MEDS: zinc gluconate 50 mg Tablet PO (08:46)
[2023-12-08] MEDS: metoprolol tartrate 25 mg Tablet PO (08:46)
[2023-12-08] MEDS: multivitamin therapeutic Tablet 1 TAB PO (08:46)
[2023-12-08] MEDS: docusate sodium 100 mg Capsule PO (08:46)
[2023-12-08] MEDS: magnesium hydroxide 30 mL UDC PO (08:46)
--- NOTE | 2023-12-08 10:11 | PC.SOCIAL ---
IMM Update pg 2 of IMM updated and reviewed w/ patient and her daughter. Copy provided. Copy dated, initialed and placed in chart.
--- NOTE | 2023-12-08 11:02 | PC.CHAP ---
Pastoral Care Encounter/Spiritual Assessment Type of Contact [] Declined hand rug braider visit [] Patient/Family/Request visit [] Outpatient visit [] Follow-up visit [] Physician referral [] Code/Alert [x] Routine visit [] Staff referral [] Actively dying [] Patient sleeping [x] Family support [] [] Out of room [] Palliative care [] [] Receiving care in room [] Pre-surgical visit [] Trauma [] Long length of stay [] ICU visit [] Other: Relational/Emotional Strength [] Patient feels connected with others/family/visitors/staff [] Distress [] Loneliness/isolation [] Abandonment Spirituality of Patient [x] Person of Terri [] Attends Orthodox of their Terri [x] Believes in Prayer [] Reads Bible or Advent materials [] There are Spiritual issues to be addressed [employer] Interventions [x] Prayer [x] Active listening [] Non-anxious presence [x] Spiritual/emotional support [] Crisis/trauma care [] Spiritual counseling [] Bereavement support [] Provided bereavement packet [x] Provided Bible/devotional materials [] Provided toy/stuffed animal, coloring book to patient or family member [] Provided Communion [] Anointing/[place] [] Salvation [x] Completed spiritual assessment [] Other: Impact on Illness or Injury [] Angry [] Fearful [] Anxious [] Often cries [] Exhaustion [] Unable to work [] Unable to attend jehovah's witness [] Unable to walk/stand [] Unable to read [] Unable to drive [] Unable to eat/drink [] Unable to sleep [] Unable to be with family [] Patient intubated [] Other: Summary Time spent with patient 10 min
--- NOTE | 2023-12-08 12:00 | P.PN_ITS ---
Subjective 2 Subjective: No acute complaints at this time. States that pain is well controlled. Has been able to eat and drink better. Vitals/I&O/Wt Last Vital Signs Temp 98.0 F 12/08/23 07:40 Pulse 82 12/08/23 11:47 Resp 16 12/08/23 11:47 BP 113/57 12/08/23 11:47 Pulse Ox 94 12/08/23 11:47 O2 Del Method Room Air 12/08/23 11:47 O2 Flow Rate 1 12/08/23 08:18 12/07/23 12/08/23 12/08/23 22:59 06:59 14:59 Intake Total 1170 / 4250 936 / 5186 1167 / 1167 Output Total 500 / 1450 Balance 1170 / 3300 436 / 3736 1167 / 1167 Weight last 48 hrs Weight 158 lb 9.6 oz Physical Exam 2 Urinary Catheter Management: Reyes: Cath Placed During This Visit: yes Reason for Continuing Indwelling Catheter: Other Urinary Catheter Date of Insertion: 12/05/23 Urinary Catheter Time of Insertion: 11:25 Data 12/08/23 02:46 12/08/23 02:46 Coding Level of Care Code Acute Code for [facility] Fwd
[2023-12-08 12:02] LABS: SARS Covid-2 Antigen negative (Negative)
--- NOTE | 2023-12-08 12:14 | PM.DCS ---
Discharge Providers Date of Admission: 12/05/23 17:04 Date of Discharge: December 08, 2023 Attending Provider at Admission: Cj Arias DO Attending Provider at Discharge: Cj Arias DO Primary Care Provider: NICHOLAS Abraham Diagnoses at Discharge Discharge Diagnosis (1) History of back surgery: Status: Acute Reason for Visit Reason for Visit: M48.062 Physical Exam Urinary Catheter Management: Reyes: Cath Placed During This Visit: yes Reason for Continuing Indwelling Catheter: Other Urinary Catheter Date of Insertion: 12/05/23 Urinary Catheter Time of Insertion: 11:25 Discharge Data Studies Completed and Pending Completed Studies During Hospitalization Category Date Time Status XR lumbar spine 2-3V* [id number] Routine Exams 12/05/23 15:33 Completed CV. echo complete* [id number] Routine Ultrasound 12/06/23 06:00 Completed Laboratory Results WBC 13.12 10^3/uL (3.29-11.43) H 12/08/23 02:46 RBC 3.04 10^6/uL (3.85-5.65) L 12/08/23 02:46 Hgb 9.70 g/dL (11.27-16.99) L 12/08/23 02:46 Hct 30.6 % (36-47) L 12/08/23 02:46 MCV 100.7 fl (85-98) H 12/08/23 02:46 MCH 31.9 pg (27-33) 12/08/23 02:46 MCHC 31.7 g/dL (30-55) 12/08/23 02:46 RDW 14.0 % (12.1-15.1) 12/08/23 02:46 Plt Count 131 10^3/cmm (157-399) L 12/08/23 02:46 MPV 11.3 fL (7.4-10.4) H 12/08/23 02:46 Neut % (Auto) 82.0 % 12/08/23 02:46 Lymph % (Auto) 10.4 % 12/08/23 02:46 Cuming % (Auto) 6.0 % 12/08/23 02:46 Eos % (Auto) 0.3 % 12/08/23 02:46 Baso % (Auto) 0.2 % 12/08/23 02:46 Neut # (Auto) 10.77 10^3/uL (1.8-7.7) H 12/08/23 02:46 Lymph # (Auto) 1.4 10^3/uL (0.8-4.8) 12/08/23 02:46 Cuming # (Auto) 0.8 10^3/uL (0.2-0.9) 12/08/23 02:46 Eos # (Auto) 0.0 10^3/uL (0.0-0.8) 12/08/23 02:46 Baso # (Auto) 0.0 10^3/uL (0.0-0.1) 12/08/23 02:46 Nucleated RBC % (auto) 0 % 12/08/23 02:46 Nucleated RBCs # 0.0 /100WBC 12/08/23 02:46 Sodium 141 mmol/L (136-145) 12/08/23 02:46 Potassium 4.6 mmol/L (3.5-5.1) 12/08/23 02:46 Chloride 110 mmol/L (98-107) H 12/08/23 02:46 Carbon Dioxide 26 mmol/L (22-29) 12/08/23 02:46 Anion Gap 9.6 (5-19) 12/08/23 02:46 BUN 27 mg/dL (8-23) H 12/08/23 02:46 Creatinine 0.8 mg/dL (0.5-0.9) 12/08/23 02:46 GFR Calculation Not Reportable 12/08/23 02:46 Glucose 117 mg/dL (65-115) H 12/08/23 02:46 Calculated Osmolality Cancelled 12/05/23 09:43 Calcium 9.6 mg/dL (8.5-10.5) 12/08/23 02:46 Phosphorus 1.5 mg/dL (2.5-4.5) L 12/08/23 02:46 Magnesium 2.0 mg/dL (1.7-2.3) 12/07/23 02:37 Albumin 2.9 g/dL (3.5-5.2) L 12/08/23 02:46 SARS-CoV-2 Ag (Rapid) negative (Negative) 12/08/23 11:30 Blood Type B Positive 12/05/23 09:43 Rho(D) Type Rh positive 12/05/23 09:43 Antibody Screen Negative 12/05/23 09:43 Vitals Last Vital Signs Temp 98.0 F 12/08/23 07:40 Pulse 82 12/08/23 11:47 Resp 16 12/08/23 11:47 BP 113/57 12/08/23 11:47 Pulse Ox 94 12/08/23 11:47 O2 Del Method Room Air 12/08/23 11:47 O2 Flow Rate 1 12/08/23 08:18 Discharge Plan Discharge Patient Disposition: Xfer SNF Condition: Stable Prescriptions: New hydrocodone-acetaminophen 5-325 mg tablet 1 - 2 tab PO .Q4-6H Qty: 40 0RF Continued multivitamin Tablet 1 tab PO DAILY (DME) Bone Growth Stimulator See Rx Instructions .Route .MEDSUPPLY Qty: 1 0RF Rx Instructions: As directed zinc acetate 50 mg (zinc) Capsule 50 mg PO DAILY omega-3 fatty acids 1,000 mg Capsule 1,000 mg PO DAILY Vitamin B-12 1,000 mcg Tablet 1,000 mcg PO DAILY Vitamin C 500 mg Tablet 500 mg PO DAILY Aleve 220 mg Tablet 220 mg PO BID PRN (Reason: Pain) vitamin E 268 mg (400 unit) Capsule 268 mg PO DAILY Voltaren Arthritis Pain 1 % Gel 2 g TOPICAL QID PRN (Reason: Pain) Rx Instructions: apply to single elbow, wrist or hand; for hand includes palm/fingers/back of hand Blue Emu Cream See Rx Instructions .ROUTE .COMPLEX Rx Instructions: as directed as needed Discharge Orders: Discharge Order (Routine); Ordered 12/08/23 Ordered By: Cj Arias Referrals: [facility] [Outside] Cj Arias DO [Physician] - 12/18/23 10:45 am Discharge Diet: Advance as tolerated Discharge Activity: Limit activity as instructed Patient Instructions: Opioid Safety Activity Restrictions/Additional Instructions: Thank you for [facility] for your care! The following is a list of instructions, from your provider, to follow upon your discharge to ensure you have the optimal recovery from your recent injury orsurgery. Follow-up care is a rodriguez part of your treatment and safety. Be sure to make and go to all appointments, and call your doctor if you are having problems. If you do not already have a follow-up appointment made, call Dr. Arias office in the next 1-3 days to make follow up appointment for 1 weeks at [phone]. It is also a good idea to know your test results and keep a list of the medicines you take. Medications will be prescribed for you at your provider's discretion. These medications are to be used as instructed; if they are taken more often that prescribed they will not be refilled early and in most cases will not be refilled at all. > When a refill is needed,you should contact nakul olivares 2-3 business days before your prescription runs out. Medications will NOT be refilled by extension clerk providers after hours! > Many pain medications contain Tylenol (Acetaminophen). Do not consume more than 4,000 mg of Tylenol per day in total with any combination ofmedications. > Pain medications can cause constipation. Please use an over the counter stool softener as directed, while taking pain medications. Consulty our local pharmacist with questions or recommendations on stool softeners. If constipation persists, contact our office or your primary care provider. > While under our care,you are not to receive pain medications or other controlled substances from any other provider unless our office is notified and approves. Any attempts to do so will result in refusal to prescribe any further pain medications and possible dismissal from our practice. ? Your wound and/or dressing should remain clean and dry for 7 days after surgery. On postoperative day 7 we will change the dressing. Pad dry afterwards. No further dressing should be required from that point on. Do not put any creams or ointments on theincision > It is normal for there to be a small amount of discharge (bloody or blood tinged) present from a surgical wound for the first 1-3days. > The wound should be examined twice a day for signs of infection. Mild redness or bruising is to be expected but indications that an infection maybe starting would include; An increase in redness, swelling, or discharge, a foul odor present around the incision, and/or a fever greater than 101 ?F ? Showering is permitted, however we ask that you do not take a bath, sit in a whirlpool / Jacuzzi, or go swimming for 1 month. For only the first 2 days after surgery, lt wilt be necessary for you to cover your wound/dressing with plastic and tape to keep it dry. ? Walking is essential for the healing process after surgery. We would like you to slowly advance your walking. This should be done on relatively flat clear ground (inside or out) or can be done on a treadmill. Remember this goal does not have to happen all at once, slowly increase your distance and duration. This can be broken into more more than one walk per day as tolerated. Patients who walk as directed after surgery rarely require Physical Therapy. In the unlikely event this issue arises your provider will direct hospital staff to make the appropriate arrangements. ? No lifting over 5 pounds {a gallon of milk) or bending/twisting until further notice. Each of these activities places an unnecessary amount of stress onto the body and can impede the delicate healing process. > Instead of bending at the waist, keep your back straight and bend at the knees. > Instead of twisting your torso, keep your back straight and turn your entire body with your feet. ? You may sleep in any position which makes you comfortable. Many patients find comfort sleeping in a reclining chair. It is not abnormal to have difficulty sleeping for the first several weeks following your surgery. We recommend trying Benadry! or Tylenol PM as directed to help with your sleeping difficulties. Both medications are over the counter and available withoutprescription. ? NO SMOKING!!! Smoking dramatically increases the probability of developing postoperative wound infections. ? Common complaints after lumbar and/or thoracic spine surgery include, but are not limited to: numbness and/or tingling in the legs, pain around the incision and surrounding tissues, muscle spasms, or stiffness of the middle to low back. Contact our office if these symptoms persist or if an acute change occurs. ? No driving for the first 3-5days, and not while taking narcotics [] until seen at your follow-up appointment and cleared. There are no restrictions for riding on short trips, however if you take a longer trip, arrangements should be made to make regular stops to get out of the vehicle and stretch . ? Swelling is an unfortunate event that will take place with any surgery and is the primary source of your postoperative discomfort. While walking and regular approved activities helps control inflammation, there are additional steps you can take to minimizeswelling. > Place ice over the surgical site and surrounding tissue for twenty minutes, followed by applying a low/medium heat (heating pad) for an additional twenty minutes every 1-2 hours as needed for painrelief. > You may use of over the counter anti-inflammatory medications (Ibuprofen, Motrin, Aleve, Advil, etc) as directed on the package label. These types of medicines wm significantly reduce the amount of discomfort you experience after surgery from swelling. It should be noted that if you have and allergy to any of these medications, or a history of ulcers or kidney disease you should consult you primary care provider prior to starting these medications. Discharge Attestations Time Spent in Discharge Care*: less than 30 min Quality Metrics Clinical Quality Measures [ No reported AMI, CVA or VTE this stay] Coding Level of Care Code Acute Code for Chg Fwd Diagnoses History of back surgery Z98.890
--- NOTE | 2023-12-08 13:26 | PC.NURSE ---
This nurse tried to call 3 times to give report to [facility]. Message left to call this nurse back to get report on patient that will be discharging to there this afternoon.
--- NOTE | 2023-12-08 13:52 | PC.NURSE ---
This nurse gave report to Nurse Jorge at [facility]. All questions addressed at this time.
--- NOTE | 2023-12-08 14:48 | P.PN_ITS ---
Subjective 2 Subjective: Daughter reports that patient has been very sleepy, and lethargic since receiving pain medication this morning. Daughter states that patient did have another episode of elevated heart rate early this morning during therapy. States heart rate was in the 130s. Denied any chest pain or other symptoms. Medications: Reviewed: Yes Vitals/I&O/Wt Last Vital Signs Temp 98.0 F 12/08/23 07:40 Pulse 82 12/08/23 14:32 Resp 16 12/08/23 14:32 BP 113/57 12/08/23 14:32 Pulse Ox 94 12/08/23 14:32 O2 Del Method Room Air 12/08/23 11:47 O2 Flow Rate 1 12/08/23 08:18 12/07/23 12/08/23 12/08/23 22:59 06:59 14:59 Intake Total 1170 / 4250 936 / 5186 1287 / 1287 Output Total 500 / 1450 250 / 250 Balance 1170 / 3300 436 / 3736 1037 / 1037 Weight last 48 hrs Weight 158 lb 9.6 oz Physical Exam 2 Narrative: General: Cooperative patient in no apparent distress. Well developed. HEENT: Normocephalic, Atraumatic. External ears normal. Nasal passages patent without drainage. MMM. Heart: RRR. Resp: LCTA. No respiratory distress, no use of accessory muscles. Abd: Soft, non-tender. Non-distended. Extremities: No edema. Skin: No rash or lesions on exposed areas. Urinary Catheter Management: Reyes: Cath Placed During This Visit: yes, but has since been removed by the nurse Reason for Continuing Indwelling Catheter: Decision to DC Catheter Urinary Catheter Date of Insertion: 12/05/23 Urinary Catheter Time of Insertion: 11:25 Date Urinary Catheter Removed: 12/08/23 Time Urinary Catheter Discontinued: 13:00 Data 12/08/23 02:46 12/08/23 02:46 A&P Assessment and plan (1) Atrial fibrillation with rapid ventricular response: 83-year-old female who was consulted on per ortho for management on A-fib with RVR. Telemetry was reviewed. She is noted to be in sinus rhythm at this time. She has had multiple episodes of atrial fibs over the last couple of days. She is being discharged to rehab today. I discussed with the patient and her daughter that given the amount of time she has been in atrial fibrillation, with frequent conversion back into that rhythm, that she should start Eliquis for VTE PPx. We discussed that she will need to follow up with her PCP in a month for review of her heart rhythm and to reevaluate whether she needs to continue on anticoagulation, or if this can be discontinued. She is currently rate controlled on Metoprolol 25 mg BID. Will send Rx to the pharmacy. Ortho had requested anticoagulation be initiated on postop day 5, which is on 12/09/2023. Medication was sent to the [facility]. Recommended to follow-up in 1 week with PCP, and again in 1 month. Attestations 2 Medical Necessity Statement*: Per primary Coding Level of Care Code Acute Code for Chg Fwd Straight Forward/Low MDM includes number and complexity of problems actively addressed during encounter, amount and/or complexity of data reviewed/ordered and described risk of complication, morbidity or mortality of management as documented Diagnoses Atrial fibrillation with rapid ventricular response I48.91
--- NOTE | 2023-12-08 14:48 | P.DS_ITS ---
Discharge Providers Date of Admission: 12/05/23 17:04 Date of Discharge: December 08, 2023 Attending Provider at Admission: Cj Arias DO Attending Provider at Discharge: Cj Arias DO Primary Care Provider: NICHOLAS Abraham Diagnoses at Discharge Discharge Diagnosis (1) History of back surgery: Status: Acute (2) Atrial fibrillation with rapid ventricular response: Status: Acute Reason for Visit Reason for Visit: M48.062 Physical Exam Urinary Catheter Management: Reyes: Cath Placed During This Visit: yes, but has since been removed by the nurse Reason for Continuing Indwelling Catheter: Decision to DC Catheter Urinary Catheter Date of Insertion: 12/05/23 Urinary Catheter Time of Insertion: 11:25 Date Urinary Catheter Removed: 12/08/23 Time Urinary Catheter Discontinued: 13:00 Discharge Data Studies Completed and Pending Completed Studies During Hospitalization Category Date Time Status XR lumbar spine 2-3V* [id number] Routine Exams 12/05/23 15:33 Completed CV. echo complete* [id number] Routine Ultrasound 12/06/23 06:00 Completed Laboratory Results WBC 13.12 10^3/uL (3.29-11.43) H 12/08/23 02:46 RBC 3.04 10^6/uL (3.85-5.65) L 12/08/23 02:46 Hgb 9.70 g/dL (11.27-16.99) L 12/08/23 02:46 Hct 30.6 % (36-47) L 12/08/23 02:46 MCV 100.7 fl (85-98) H 12/08/23 02:46 MCH 31.9 pg (27-33) 12/08/23 02:46 MCHC 31.7 g/dL (30-55) 12/08/23 02:46 RDW 14.0 % (12.1-15.1) 12/08/23 02:46 Plt Count 131 10^3/cmm (157-399) L 12/08/23 02:46 MPV 11.3 fL (7.4-10.4) H 12/08/23 02:46 Neut % (Auto) 82.0 % 12/08/23 02:46 Lymph % (Auto) 10.4 % 12/08/23 02:46 [place] % (Auto) 6.0 % 12/08/23 02:46 Eos % (Auto) 0.3 % 12/08/23 02:46 Baso % (Auto) 0.2 % 12/08/23 02:46 Neut # (Auto) 10.77 10^3/uL (1.8-7.7) H 12/08/23 02:46 Lymph # (Auto) 1.4 10^3/uL (0.8-4.8) 12/08/23 02:46 [place] # (Auto) 0.8 10^3/uL (0.2-0.9) 12/08/23 02:46 Eos # (Auto) 0.0 10^3/uL (0.0-0.8) 12/08/23 02:46 Baso # (Auto) 0.0 10^3/uL (0.0-0.1) 12/08/23 02:46 Nucleated RBC % (auto) 0 % 12/08/23 02:46 Nucleated RBCs # 0.0 /100WBC 12/08/23 02:46 Sodium 141 mmol/L (136-145) 12/08/23 02:46 Potassium 4.6 mmol/L (3.5-5.1) 12/08/23 02:46 Chloride 110 mmol/L (98-107) H 12/08/23 02:46 Carbon Dioxide 26 mmol/L (22-29) 12/08/23 02:46 Anion Gap 9.6 (5-19) 12/08/23 02:46 BUN 27 mg/dL (8-23) H 12/08/23 02:46 Creatinine 0.8 mg/dL (0.5-0.9) 12/08/23 02:46 GFR Calculation Not Reportable 12/08/23 02:46 Glucose 117 mg/dL (65-115) H 12/08/23 02:46 Calculated Osmolality Cancelled 12/05/23 09:43 Calcium 9.6 mg/dL (8.5-10.5) 12/08/23 02:46 Phosphorus 1.5 mg/dL (2.5-4.5) L 12/08/23 02:46 Magnesium 2.0 mg/dL (1.7-2.3) 12/07/23 02:37 Albumin 2.9 g/dL (3.5-5.2) L 12/08/23 02:46 SARS-CoV-2 Ag (Rapid) negative (Negative) 12/08/23 11:30 Blood Type B Positive 12/05/23 09:43 Rho(D) Type Rh positive 12/05/23 09:43 Antibody Screen Negative 12/05/23 09:43 Vitals Last Vital Signs Temp 98.0 F 12/08/23 07:40 Pulse 82 12/08/23 14:32 Resp 16 12/08/23 14:32 BP 113/57 12/08/23 14:32 Pulse Ox 94 12/08/23 14:32 O2 Del Method Room Air 12/08/23 11:47 O2 Flow Rate 1 12/08/23 08:18 Discharge Plan Discharge Patient Disposition: Xfer SNF Condition: Stable Prescriptions: New hydrocodone-acetaminophen 5-325 mg tablet 1 - 2 tab PO .Q4-6H Qty: 40 0RF Eliquis DVT-PE Treat 30D Start 5 mg (74 tabs) tablets,dose pack See Rx Instructions .ROUTE .COMPLEX Qty: 74 0RF Rx Instructions: orally per package directions. Start on 12/09/23. Continued multivitamin Tablet 1 tab PO DAILY (DME) Bone Growth Stimulator See Rx Instructions .Route .MEDSUPPLY Qty: 1 0RF Rx Instructions: As directed zinc acetate 50 mg (zinc) Capsule 50 mg PO DAILY omega-3 fatty acids 1,000 mg Capsule 1,000 mg PO DAILY Vitamin B-12 1,000 mcg Tablet 1,000 mcg PO DAILY Vitamin C 500 mg Tablet 500 mg PO DAILY Aleve 220 mg Tablet 220 mg PO BID PRN (Reason: Pain) vitamin E 268 mg (400 unit) Capsule 268 mg PO DAILY Voltaren Arthritis Pain 1 % Gel 2 g TOPICAL QID PRN (Reason: Pain) Rx Instructions: apply to single elbow, wrist or hand; for hand includes palm/fingers/back of hand Blue Emu Cream See Rx Instructions .ROUTE .COMPLEX Rx Instructions: as directed as needed Discharge Orders: Discharge Order (Routine); Ordered 12/08/23 Ordered By: Cj Arias Referrals: [facility] [Outside] Cj Arias DO [Physician] - 12/18/23 10:45 am Jayce Jewell MD [Physician] - 12/09/23 9:30 am Discharge Diet: Advance as tolerated Discharge Activity: Limit activity as instructed Patient Instructions: Opioid Safety Activity Restrictions/Additional Instructions: Thank you for [facility] for your care! The foll owing is a list of instructions, from your provider, to follow upon your discharge to ensure you have the optimal recovery from your recent injury orsurgery. Follow-up care is a rodriguez part of your treatment and safety. Be sure to make and go to all appointments, and call your doctor if you are having problems. If you do not already have a follow-up appointment made, call Dr. Arias office in the next 1-3 days to make follow up appointment for 1 weeks at [phone]. It is also a good idea to know your test results and keep a list of the medicines you take. Medications will be prescribed for you at your provider's discretion. These medications are to be used as instructed; if they are taken more often that prescribed they will not be refilled early and in most cases will not be refilled at all. > When a refill is needed,you should contact nakul olivares 2-3 business days before your prescription runs out. Medications will NOT be refilled by alteration tailor apprentice providers after hours! > Many pain medications contain Tylenol (Acetaminophen). Do not consume more than 4,000 mg of Tylenol per day in total with any combination ofmedications. > Pain medications can cause constipation. Please use an over the counter stool softener as directed, while taking pain medications. Consulty our local pharmacist with questions or recommendations on stool softeners. If const ipation persists, contact our office or your primary care provider. > While under our care,you are not to receive pain medications or other controlled substances from any other provider unless our office is notified and approves. Any attempts to do so will result in refusal to prescribe any further pain medications and possible dismissal from our practice. ? Your wound and/or dressing should remain clean and dry for 7 days after surgery. On postoperative day 7 we will change the dressing. Pad dry afterwards. No further dressing should be required from that point on. Do not put any creams or ointments on theincision > It is normal for there to be a small amount of discharge (bloody or blood tinged) present from a surgical wound for the first 1-3days. > The wound should be examined twice a day for signs of infection. Mild redness or bruising is to be expected but indications that an infection maybe starting would include; An increase in redness, swelling, or discharge, a foul odor present around the incision, and/or a fever greater than 101 ?F ? Showering is permitted, however we ask that you do not take a bath, sit in a whirlpool / Jacuzzi, or go swimming for 1 month. For only the first 2 days after surgery, lt wilt be necessary for you to cover your wound/dressing with plastic and tape to keep it dry. ? Walking is essential for the healing process after surgery. We would like you to slowly advance your walking. This should be done on relatively flat clear ground (inside or out) or can be done on a treadmill. Remember this goal does not have to happen all at once, slowly increase your distance and duration. This can be broken into more more than one walk per day as tolerated. Patients who walk as directed after surgery rarely require Physical Therapy. In the unlikely event this issue arises your provider will direct hospital staff to make the appropriate arrangements. ? No lifting over 5 pounds {a gallon of milk) or bending/twisting until further notice. Each of these activities places an unnecessary amount of stress onto the body and can impede the delicate healing process. > Instead of bending at the waist, keep your back straight and bend at the knees. > Instead of twisting your torso, keep your back straight and turn your entire body with your feet. ? You may sleep in any position which makes you comfortable. Many patients find comfort sleeping in a reclining chair. It is not abnormal to have difficulty sleeping for the first several weeks following your surgery. We recommend trying Benadry! or Tylenol PM as directed to help with your sleeping difficulties. Both medications are over the counter and available withoutprescription. ? NO SMOKING!!! Smoking dramatically increases the probability of developing postoperative wound infections. ? Common complaints after lumbar and/or thoracic spine surgery include, but are not limited to: numbness and/or tingling in the legs, pain around the incision and surrounding tissues, muscle spasms, or stiffness of the middle to low back. Contact our office if these symptoms persist or if an acute change occurs. ? No driving for the first 3-5days, and not while taking narcotics [] until seen at your follow-up appointment and cleared. There are no restrictions for riding on short trips, however if you take a longer trip, arrangements should be made to make regular stops to get out of the vehicle and stretch . ? Swelling is an unfortunate event that will take place with any surgery and is the primary source of your postoperative discomfort. While walking and regular approved activities helps control inflammation, there are additional steps you can take to minimizeswelling. > Place ice over the surgical site and surrounding tissue for twenty minutes, followed by applying a low/medium heat (heating pad) for an additional twenty minutes every 1-2 hours as needed for painrelief. > You may use of over the counter anti-inflammatory medications (Ibuprofen, Motrin, Aleve, Advil, etc) as directed on the package label. These types of medicines wm significantly reduce the amount of discomfort you experience after surgery from swelling. It should be noted that if you have and allergy to any of these medications, or a history of ulcers or kidney disease you should consult you primary care provider prior to starting these medications. Coding Level of Care Code Acute Code for Chg Fwd Diagnoses History of back surgery Z98.890 Atrial fibrillation with rapid ventricular response I48.91
== END 2023-12-08 14:32 | disposition skilled nursing facility (03) | DRG 455 ==
LOC: MEDSURG 17:38
PROVIDERS: Anesthesiology; Internal Medicine; Student in an Organized Health Care Education/Training Program; Admitting Provider Orthopaedic Surgery; PCP Nurse Practitioner Family; Visit Provider Orthopaedic Surgery
PROC: 0SG107J Fusion of 2 or more Lumbar Vertebral Joints with Autologous Tissue Substitute, Posterior Approach, Anterior Column, Open Approach (ICD-10-PCS; principal; 2023-12-05 10:30)
PROC: 0SG107J Fusion of 2 or more Lumbar Vertebral Joints with Autologous Tissue Substitute, Posterior Approach, Anterior Column, Open Approach (ICD-10-PCS; 2023-12-05 10:30)
PROC: 0SG107J Fusion of 2 or more Lumbar Vertebral Joints with Autologous Tissue Substitute, Posterior Approach, Anterior Column, Open Approach (ICD-10-PCS; CPT 27280; 2023-12-05 10:30)
PROC: 0SG107J Fusion of 2 or more Lumbar Vertebral Joints with Autologous Tissue Substitute, Posterior Approach, Anterior Column, Open Approach (ICD-10-PCS; CPT 63005; 2023-12-05 10:30)
DX: M48.062 Spinal stenosis, lumbar region with neurogenic claudication (principal); M51.36 Other intervertebral disc degeneration, lumbar region; M41.9 Scoliosis, unspecified; M16.12 Unilateral primary osteoarthritis, left hip; Z11.52 Encounter for screening for COVID-19; I48.0 Paroxysmal atrial fibrillation; I07.1 Rheumatic tricuspid insufficiency; I27.20 Pulmonary hypertension, unspecified; D64.9 Anemia, unspecified; K13.70 Unspecified lesions of oral mucosa
CPT/HCPCS: 12345; 36415; 51702; 72100; 76000; 80069; 83735; 85018; 85025; 86850; 86900; 87426; 92610; 93005; 93306; 97110; 97116; 97162; 97530; C1713; J0330; J0690; J0780; J1100; J1170; J1644; J1885; J2270; J2371; J2405; J2704; J2710; J3010; J3370; J3475; J3490; J7030; J7120

== ENCOUNTER 2023-12-09 07:51 | Emergency (ER) | payer MEDICARE, OTHER, SELFPAY ==
[2023-12-09 08:03] VITALS: BP 139/80; PULSE 89; RESP 16; TEMP 37.4; O2SAT 91
[2023-12-09 10:03] LABS: Basophils % 0.2 %; Eosinophils # 0.1 10^3/uL (0.0-0.8); Eosinophils % 0.5 %; Hematocrit 26.8 % (36-47); Lymphocytes # 1.3 10^3/uL (0.8-4.8); Lymphocytes % 12.3 %; Mean Corpuscular HGB Conc 32.5 g/dL (30-55); Mean Corpuscular Hemoglobin 31.9 pg (27-33); Mean Corpuscular Volume 98.2 fl (85-98); Mean Platelet Volume 11.1 fL (7.4-10.4); Monocytes # 0.7 10^3/uL (0.2-0.9); Monocytes % 7.2 %; Neutrophils # 8.05 10^3/uL (1.8-7.7); Neutrophils % 79.1 %; Nucleated Red Blood Cells % 0 %; Platelet Count 162 10^3/cmm (157-399); Red Blood Count 2.73 10^6/uL (3.85-5.65); Red Cell Distribution Width 14.2 % (12.1-15.1); White Blood Count 10.17 10^3/uL (3.29-11.43)
[2023-12-09 10:20] LABS: Alanine Aminotransferase 8 U/L (0-33); Albumin Level 2.8 g/dL (3.5-5.2); Alkaline Phosphatase 79 U/L (35-105); Aspartate Amino Transferase 28 U/L (0-32); Blood Urea Nitrogen 25 mg/dL (8-23); Calcium 9.4 mg/dL (8.5-10.5); Carbon Dioxide 27 mmol/L (22-29); Chloride 111 mmol/L (98-107); Globulin 2.7 g/dL (1.3-4.6); Glucose 102 mg/dL (65-115); Osmolality Calculated 303 mOsm/kg (285-295); Sodium 144 mmol/L (136-145); Total Bilirubin 0.8 mg/dL (0.15-1.2); Total Protein 5.5 g/dL (6.6-8.7)
--- NOTE | 2023-12-09 10:28 | ED_ITS ---
HPI - Back Pain/Injury 2 General: Chief Complaint: Back Pain/Injury Stated Complaint: Lumbar Surg. Friday Time Seen by Provider: 12/09/23 07:56 History of Present Illness: Patient presents to the ER from [facility] for evaluation. Patient had back surgery on Friday by Dr. Arias. Patient's family states there is slight drainage come out of the incision site and she is heavily medicated with pain medicine and she is not producing a whole lot of urine. She was cath in the shelter and had about 300 mL out. Review of Systems 2 General: Reports: 10 or more systems reviewed and unremarkable except in HPI and below PFSH ED 2 PFSH: Medical History DDD (degenerative disc disease), lumbar Arthritis of left hip Sinusitis Nasal congestion Excessive cerumen in left ear canal Otitis externa Hearing decreased Otitis media Surgical History History of back surgery Family History Father Heart disease Myocardial infarction Social History Smoking and tobacco/nicotine status: never used tobacco/nicotine Second hand smoke exposure: No Alcohol intake: never Substance/Drug Use: never Physical Exam 2 Const: COMMON NORMALS: no acute distress, average body habitus, no limitations, healthy appearing, alert and well nourished HENMT: COMMON NORMALS: normocephalic, atraumatic, hearing grossly normal bilaterally, external ears normal, Normal external nose present, moist oral mucous membranes and oropharynx normal HEAD & SCALP: normocephalic and atraumatic NOSE: Normal external nose present EXTERNAL EAR: Yes external ears normal Neck/C-Spine: COMMON NORMALS: no JVD Chest: COMMONS NORMALS: normal inspection of the chest and normal palpation of entire chest wall Resp: COMMON NORMALS: normal respiratory effort, No retractions, No use of accessory muscles and clear to auscultation bilaterally AUSCULTATION: clear to auscultation bilaterally Cardio: COMMON NORMALS: no JVD, regular rate, regular rhythm, S1 normal heart sound present, S2 normal heart sound present, No gallops present (Cardio), No clicks present (Cardio) and No rub (Cardio) RATE: regular rate RHYTHM: r egular rhythm HEART SOUNDS: S1 normal heart sound present and S2 normal heart sound present GI: COMMON NORMALS: Normal to inspection, nondistended, normoactive bowel sounds present, Soft to palpation, non-tender and No hepatosplenomegaly present PALPATION: Yes Soft to palpation and Yes No hepatosplenomegaly present Neuro: SENSORIUM/ORIENTATION: Yes alert Course 2 Vital Signs: Vital signs: Vital Signs Temperature 99.4 F 12/09/23 08:03 Pulse Rate 113 H 12/09/23 17:09 Respiratory Rate 18 12/09/23 11:08 Blood Pressure 130/86 12/09/23 17:09 Pulse Oximetry 90 12/09/23 17:09 Oxygen Delivery Me thod Room Air 12/09/23 16:02 MDM - Back Pain/Injury Medical Decision Making Dr. Arias came down and saw the patient and she indicated him that she was having problems swallowing and urinatin Dr. Arias would prefer to have her admitted to the hospitalist with possible MRI today so if he has to go back and do surgery he can do it tomorrow morning. MRI came back and Dr. Arias calls no need for surgery. Patient was going to be discharged back to facility when noticed her heart rate was upward in the 140s. Patient does have A-fib with RVR and she ended up missing her morning dose of metoprolol. She is given dose of metoprolol here as well as Cardizem. This slowed her heart rate down approximate 100 bpm. Patient was given dose of laxative and a Reyes catheter was inserted which released about 400 cc of urine. Urinalysis was obtained and was clear. Patient will have Reyes left in place and be discharged back to shelter. Labs 12/09/23 07:22 12/09/23 07:22 Laboratory Results WBC 10.17 10^3/uL (3.29-11.43) 12/09/23 07:22 RBC 2.73 10^6/uL (3.85-5.65) L 12/09/23 07:22 Hgb 8.70 g/dL (11.27-16.99) L 12/09/23 07:22 Hct 26.8 % (36-47) L 12/09/23 07:22 MCV 98.2 fl (85-98) H 12/09/23 07:22 MCH 31.9 pg (27-33) 12/09/23 07:22 MCHC 32.5 g/dL (30-55) 12/09/23 07:22 RDW 14.2 % (12.1-15.1) 12/09/23 07:22 Plt Count 162 10^3/cmm (157-399) 12/09/23 07:22 MPV 11.1 fL (7.4-10.4) H 12/09/23 07:22 Neut % (Auto) 79.1 % 12/09/23 07:22 Lymph % (Auto) 12.3 % 12/09/23 07:22 [place] % (Auto) 7.2 % 12/09/23 07:22 Eos % (Auto) 0.5 % 12/09/23 07:22 Baso % (Auto) 0.2 % 12/09/23 07:22 Neut # (Auto) 8.05 10^3/uL (1.8-7.7) H 12/09/23 07:22 Lymph # (Auto) 1.3 10^3/uL (0.8-4.8) 12/09/23 07:22 [place] # (Auto) 0.7 10^3/uL (0.2-0.9) 12/09/23 07:22 Eos # (Auto) 0.1 10^3/uL (0.0-0.8) 12/09/23 07:22 Baso # (Auto) 0.0 10^3/uL (0.0-0.1) 12/09/23 07:22 Nucleated RBC % (auto) 0 % 12/09/23 07: Nucleated RBCs # 0.0 /100WBC 12/09/23 07:22 Sodium 144 mmol/L (136-145) 12/09/23 07:22 Potassium 5.0 mmol/L (3.5-5.1) 12/09/23 07:22 Chloride 111 mmol/L (98-107) H 12/09/23 07:22 Carbon Dioxide 27 mmol/L (22-29) 12/09/23 07:22 Anion Gap 11.0 (5-19) 12/09/23 07:22 BUN 25 mg/dL (8-23) H 12/09/23 07:22 Creatinine 0.6 mg/dL (0.5-0.9) 12/09/23 07:22 GFR Calculation Not Reportable 12/09/23 07:22 Glucose 102 mg/dL (65-115) 12/09/23 07:22 Calculated Osmolality 303 mOsm/kg (285-295) H 12/09/23 07:22 Calcium 9.4 mg/dL (8.5-10.5) 12/09/23 07:22 Total Bilirubin 0.8 mg/dL (0.15-1.2) 12/09/23 07:22 AST 28 U/L (0-32) 12/09/23 07:22 ALT 8 U/L (0-33) 12/09/23 07:22 Alkaline Phosphatase 79 U/L (35-105) 12/09/23 07:22 Total Protein 5.5 g/dL (6.6-8.7) L 12/09/23 07:22 Albumin 2.8 g/dL (3.5-5.2) L 12/09/23 07:22 Globulin 2.7 g/dL (1.3-4.6) 12/09/23 07:22 Urine Color Yellow (Yellow) 12/09/23 16:51 Urine Appearance Clear (CLEAR) 12/09/23 16:51 Urine pH 5 (5-7) 12/09/23 16:51 Ur Specific [place] 1.015 (1.005-1.030) 12/09/23 16:51 Urine Protein Neg (Negative) 12/09/23 16:51 Urine Glucose (UA) Norm (Normal) 12/09/23 16:51 Urine Ketones 1+ (Negative) H 12/09/23 16:51 Urine Blood Neg (Negative) 12/09/23 16:51 Urine Nitrate Negative (Negative) 12/09/23 16:51 Urine Bilirubin Neg (Negative) 12/09/23 16:51 Urine Urobilinogen Neg mg/dL (Negative) 12/09/23 16:51 Ur Leukocyte Esterase Negative (Negative) 12/09/23 16:51 All radiology interpretation(s) finalized by discharge EKG Data EKG 1: I personally reviewed and interpreted this EKG as follows: EKG interpretation date: 12/09/23 EKG interpretation time: 14:34 Prior EKG tracings: available for review Interpretation: Ventricular 839 beats a minute, QRS duration 74, QTc of 346, A-fib with RVR, Discharge Plan Discharge Patient Disposition: Home Clinical Impression: Acute urinary retention, Constipation due to opioid therapy Condition: Stable Prescriptions: New Movantik 25 mg tablet 25 mg PO DAILY Qty: 10 0RF Rx Instructions: must be taken on empty stomach; no food 1 hr after or 2-3 hrs before dose No Action multivitamin Tablet 1 tab PO DAILY@07 (DME) Bone Growth Stimulator See Rx Instructions .Route .MEDSUPPLY Qty: 1 0RF Rx Instructions: As directed zinc acetate 50 mg (zinc) Capsule 50 mg PO DAILY@07 omega-3 fatty acids 1,000 mg Capsule 1,000 mg PO DAILY@07 cyanocobalamin (vitamin B-12) [Vitamin B-12] 1,000 mcg Tablet 1,000 mcg PO DAILY@07 ascorbic acid (vitamin C) [Vitamin C] 500 mg Tablet 500 mg PO DAILY@07 naproxen sodium [Aleve] 220 mg Tablet 220 mg PO Q12H PRN (Reason: Pain) vitamin E 268 mg (400 unit) Capsule 268 mg PO DAILY@07 diclofenac sodium [Voltaren Arthritis Pain] 1 % Gel 2 g TOPICAL QID PRN (Reason: Pain) Rx Instructions: apply to single elbow, wrist or hand; for hand includes palm/fingers/back of hand Blue Emu Cream 1 applic topical Q6H PRN (Reason: Pain) [place]ais DVT-PE Treat 30D Start 5 mg (74 tabs) tablets,dose pack See Rx Instructions .ROUTE .COMPLEX Qty: 74 0RF Rx Instructions: orally per package directions. Start on 12/09/23. (NOT STARTED OF 12/09/23 PER DEVANTE CARRER[facility]) metoprolol tartrate 25 mg Tablet 25 mg PO BID@0900,2100 30 Days Qty: 60 0RF Rx Instructions: NOT STARTED OF 12/09/23 hydrocodone-acetaminophen 5-325 mg tablet 1 - 2 tab PO Q4H PRN (Reason: Pain) Discharge Orders: Discharge ED (Routine); Ordered 12/09/23 Ordered By: New Gonzalez Patient Instructions: Constipation (ED), Acute Urinary Retention in Women (ED) Activity Restrictions/Additional Instructions: A Reyes catheter was placed because your bladder had approximately 400 cc of urine in it. You are given a laxative here in ER which should help your bowels. You will be started on a medicine take daily while you are on opiates that will help you from getting constipated. Please follow-up with your primary care doctor within the next 7 days for removal of the Reyes catheter and reassessment of the constipation. Coding Level of Care Code ED Engineer [employer] for Sherlyn Boss
--- NOTE | 2023-12-09 10:32 | PC.PHAR ---
Addendum entered by Joanie Islas 12/09/23 12:21: MEDICATIONS ENTERED ARE FROM THE PTS MAR AND TAR-ELIQUIS DVT DOSE PACK AND METOPROLOL TARTRATE 25MG BID WRITTEN ON 12/08/23 ARE NOT ON THE PTS MAR-COLIN LOW RN FROM [facility] STATES THE DON HAS NOT PUT IN ALL THE ORDERS STATES THAT COULD BE WHY THE ELIQUIS DOSE PACK AND METOPROLOL IS NOT ON MAR - Addendum entered by Joanie Islas 12/09/23 11:25: called again and asked for mar and tar to be [phone] k[facility] states will try to refax again Addendum entered by Pilar Montilla 12/09/23 11:08: [facility] FAXING MED LIST Original Note: PT IS FROM [facility]
[2023-12-09] MEDS: sodium chloride 0.9% 500 ML 999 ML IV (11:07)
[2023-12-09 11:08] VITALS: BP 166/77; PULSE 85; RESP 18; O2SAT 93
--- NOTE | 2023-12-09 11:51 | MR_ITS ---
WS: [id number] MRI LUMBAR SPINE NONCONTRAST TECHNIQUE: Sagittal T1, T2 and STIR imaging. Axial T1 and T2 imaging. CLINICAL INFORMATION: post surgery, urinary retention, spinal fluid leak COMPARISON: CT 09/29/2023 FINDINGS: Images limited due to extensive susceptibility artifact from hardware. Postoperative changes are new since the prior CT. Pedicle screw fixation L2-S1 with bilateral sacroil iac fixation screws. Expected postoperative changes in the dorsal subcutaneous and paravertebral soft tissues from recent fusion. Repair of CSF leak with dorsal dural graft and Gelfoam packing results in expected ventral di splacement of the thecal sac at L3-L5. Mild crowding of the cauda equina nerve rootlets. No evidence of subcutaneous or paravertebral CSF collection. L1-L2: Normal. L2-L3: Mild disc bulging. Spinal canal is patent. Mild RIGHT foraminal narrowing. L3-L4: Dorsal CSF repair. Expected ventral displacement of the thecal sac from CSF leak repair. Theresa en not well visualized. Laminectomy defects. L4-L5: Dorsal CSF repair. Laminectomy defects. Expected ventral displacement of the thecal sac from C SF leak repair. Mild RIGHT foraminal narrowing. L5-S1: Mild annular bulging. Slight effacement of the ventral thecal sac. Laminectomy defects. Mild R IGHT foraminal narrowing. IMPRESSION: Images somewhat limited due to susceptibly artifact from hardware 1. Recent postoperative changes pedicle screw fixation L2-S1 with sacroiliac fixation screws. 2. No evidence of drainable fluid collection, hematoma, or abscess. No fluid collection to suggest C SF leak. 3. Dural repair at L3-L5 dorsally with Gelfoam results in expected ventral displacement of the theca l sac described above. Associated laminectomy defects. 4. Otherwise normal for postoperative purposes. Notified discussed with Dr. Arias at 12/09/2023 2:00 PM.
[2023-12-09 14:08] VITALS: BP 129/85; PULSE 133; O2SAT 93
--- NOTE | 2023-12-09 14:34 | ECG_ITS ---
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 Measurements Intervals [place] Rate: 139 P: 0 NE: 0 QRS: 54 QRSD: 74 T: 35 QT: 265 QTc: 403 Interpretive Statements ATRIAL FIBRILLATION WITH RAPID VENTRICULAR RESPONSE Compared to ECG 12/05/2023 18:40:26 ST (T wave) deviation no longer present Electronically Signed On 12-09-2023 17:39:06 CDT by Edy Ulloa M.D. [id number] f
[2023-12-09] MEDS: metoprolol tartrate 25 mg Tablet PO (14:49)
[2023-12-09] MEDS: fentaNYL 50 mcg/mL INJ 2mL 25 MCG IVP (15:07)
[2023-12-09] MEDS: ondansetron 2 mg/ML SDV 2 mL 4 MG IVP (15:07)
[2023-12-09] MEDS: dilTIAZem 5 mg/mL SDV 5 mL 10 MG IVP (15:31)
[2023-12-09 16:02] VITALS: BP 138/82; PULSE 101; O2SAT 93
[2023-12-09 16:59] LABS: Add Urine Microscopic? NO; Charge for UA Resulting for Rev
[2023-12-09] MEDS: sennosides-docusate Tablet 2 TAB PO (17:07)
[2023-12-09 17:09] VITALS: BP 130/86; PULSE 113; O2SAT 90
[2023-12-09 17:20] LABS: Bilirubin Urine Neg (Negative); Blood Urine Neg (Negative); Glucose Urine UA Norm (Normal); Ketones Urine 1+ (Negative); Leukocyte Esterase Urine Negative (Negative); Nitrate Urine Negative (Negative); Protein Urine Neg (Negative); Specific Gravity, Urine 1.015 (1.005-1.030); Urine Appearance Clear (CLEAR); Urine Color Yellow (Yellow); Urobilinogen Urine Neg (Negative); pH Urine 5 (5-7)
--- NOTE | 2023-12-09 18:10 | PC.NURSE ---
Patient was discharged back to [facility]; report was called to Kaylin RN at [facility] and all questions were addressed at time of report. Daughter Stormy was also made aware and informed of discharge instructions.
== END 2023-12-09 18:02 | disposition home or self-care (01) ==
PROVIDERS: Emergency Provider Emergency Medicine
DX: K59.03 Drug induced constipation (principal); T40.2X5A Adverse effect of other opioids, initial encounter; R33.9 Retention of urine, unspecified; Z98.890 Other specified postprocedural states
CPT/HCPCS: 51701; 51702; 72148; 80053; 81003; 85025; 93005; 96361; 96374; 96375; 99284; J2405; J3010; J3490; J7040

== ENCOUNTER 2023-12-13 12:43 | Emergency (ER) | payer MEDICARE, OTHER, SELFPAY ==
[2023-12-13] VITALS (12 sets, daily range): BP systolic 103–164; BP diastolic 56–104; PULSE 88–122; RESP 20; TEMP 37.7–38.9; O2SAT 90–100
--- NOTE | 2023-12-13 12:49 | XRR_ITS ---
PROCEDURE INFORMATION: Exam: XR Chest Exam date and time: 12/13/2023 12:59 PM Age: 83 years old Clinical indication: Patient HX: Dyspnea; Cough TECHNIQUE: Imaging protocol: Radiologic exam of the chest. Views: 1 view. COMPARISON: No relevant prior studies available. FINDINGS: Lungs: There is ill-defined haziness lower lung zones with bilateral lower lobe consolidation likely in part due to atelectasis. There is indistinct somewhat masslike opacity projecting below the right hilum, obscured by the right heart border inconclusive for lung mass. There are bibasilar pleural effusions. Pleural spaces: See Lungs finding. Heart/Mediastinum: Heart is moderately enlarged with prominence of the right heart border suggesting right-sided cardiac enlargement. Bones/joints: Unremarkable for age. XR/XR chest 1V portable [id number] IMPRESSION: 1. Cardiomegaly with bibasilar consolidation and accompanying pleural effusions. 2. Questionable right infrahilar lung mass for which continued follow-up or CT chest recommended for clarification.
--- NOTE | 2023-12-13 12:49 | CTR_ITS ---
PROCEDURE INFORMATION: Exam: CT Head Without Contrast Exam date and time: 12/13/2023 1:51 PM Age: 83 years old Clinical indication: Altered mental status/memory loss; Confusion or disorientation; Additional info: AMS TECHNIQUE: Imaging protocol: Computed tomography of the head without contrast. Radiation optimization: All CT scans at this facility use at least one of these dose optimization techniques: automated exposure control; mA and/or kV adjustment per patient size (includes targeted exams where dose is matched to clinical indication); or iterative reconstruction. COMPARISON: No relevant prior studies available. RADIATION DOSE METRICS: Total DLP (mGy-cm): 979.68 FINDINGS: Brain: No space-occupying masses. No evidence of acute infarct. Mild chronic white matter microvascular changes. Cortical sulci are unremarkable for age. Cerebral ventricles: There is a very small amount of acute intraventricular hemorrhage within the dependent portion of the lateral ventricles bilaterally. No other areas of hemorrhage are detected. Findings are of uncertain etiology. Consider occult aneurysm/vascular malformation, hypertension, anticoagulants/coagulopathy. Ventricles are not significantly dilated for patient's age. Paranasal sinuses: Visualized sinuses are unremarkable. No fluid levels. Mastoid air cells: Visualized mastoid air cells are well aerated. Bones/joints: Unremarkable. No acute fracture. Soft tissues: Unremarkable. CT/CT head wo con* [id number] IMPRESSION: Small amount of acute intraventricular hemorrhage within the dependent portion lateral ventricles of uncertain etiology as discussed above.
--- NOTE | 2023-12-13 12:59 | ECG_ITS ---
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 Measurements Intervals [place] Rate: 90 P: 77 [place]: 146 QRS: 74 QRSD: 82 T: 74 QT: 360 QTc: 441 Interpretive Statements SINUS RHYTHM Compared to ECG 12/09/2023 14:34:42 Atrial fibrillation no longer present Electronically Signed On 12-14-2023 8:10:24 CDT by Saji August M.D. [id number]
--- NOTE | 2023-12-13 13:48 | ED_ITS ---
Documented by User: Atif Cordova DO 12/14/23 06:29 HPI - Altered Mental Status 2 General: Chief Complaint: Altered Mental Status Stated Complaint: AMS Time Seen by Provider: 12/13/23 12:49 Source: family Mode of arrival: EMS History of Present Illness: 83-year-old female presents emergency ro om via EMS obtunded she will moan in response to verbal stimuli but no understandable words. Family is with her at the bedside she reports that yesterday she was normal they believe she received 2 doses of tramadol which she was allergic to and this morning was obtunded. No report of fever no vomiting or diarrhea no cough. Oxygen sat on arrival is 96 to 98% on room air. MD complaint: altered mental status Onset (ago): unknown Review of Systems 2 General: Reports: ROS unobtainable due to mental status PFSH ED 2 PFSH: Medical History DDD (degenerative disc disease), lumbar Arthritis of left hip Sinusitis Nasal congestion Excessive cerumen in left ear canal Otitis externa Hearing decreased Otitis media Surgical History History of back surgery Family History Father Heart disease Myocardial infarction Social History Smoking and tobacco/nicotine status: never used tobacco/nicotine Second hand smoke exposure: No Alcohol intake: never Substance/Drug Use: never Physical Exam 2 Const: ORIENTATION/CONSCIOUSNESS: Yes awake HENMT: COMMON NORMALS: normocephalic, atraumatic and hearing grossly normal bilaterally HEAD & SCALP: normocephalic and atraumatic Resp: COMMON NORMALS: normal respiratory effort, No retractions, No use of accessory muscles and clear to auscultation bilaterally AUSCULTATION: clear to auscultation bilaterally Cardio: COMMON NORMALS: regular rate, regular rhythm and No murmurs present (Cardio) RATE: regular rate RHYTHM: regular rhythm GI: COMMON NORMALS: Soft to palpation and No hepatosplenomegaly present A USCULTATION: Yes normoactive bowel sounds PALPATION: Yes Soft to palpation, No Tenderness to palpation present (GI), No Guarding due to palpation present (GI) and Yes No hepatosplenomegaly present Extremity: COMMON NORMALS: normal to inspection, capillary refill normal, no clubbing, cyanosis or edema, no calf tenderness and no pedal edema Neuro: PANCHO COMA SCALE: document GCS findings [place] coma scale eye opening: None [place] coma scale verbal response: None [place] coma scale motor response: Abnormal flexion [place] coma scale total score: 5 Skin: COMMON NORMALS: no rashes or lesions noted GENERAL SKIN EXAM: no rashes or lesions noted Procedures Intubation Time out performed: Yes sedative: Etomidate Mg Given: 10 paralytic: Succinylcholine Mg Given: 90 Laryngoscope: Flori ET Tube Size: 7.5 ET Tube Uncuffed: No Tube Secured Depth (cm): 22 Tube Secured Location: teeth Tube Placement Confirmation: visualized tube passing through cords, equal breath sounds bilaterally, no breath sounds over epigastrium and confirmation by capnometry Patient Tolerated Procedure: well Intubation Complications: none Course 2 Vital Signs: Vital signs: Vital Signs Temperature 101.2 F H 12/13/23 20:00 Pulse Rate 110 H 12/14/23 02:04 Respiratory Rate 20 H 12/14/23 02:04 Blood Pressure 91/58 12/14/23 02:04 Pulse Oximetry 100 12/14/23 02:04 Oxygen Delivery Me thod Mechanical Ventil ation 12/13/23 20:00 Oxygen Flow Rate 2 12/13/23 16:30 Fraction of Inspir ed Oxygen 100 12/13/23 18:28 MDM - Altered Mental Status Medical Decision Making Patient appears to have an acute infection although does not meet criteria currently for sepsis. She also has a small intraventricular bleed which is very small we forwarded the films to neurosurgery the family is requested [facility] in [place]. I talked to the on-call neurosurgeon there he does not recommend any surgical correction for this. He states even if it got worse there would not be a surgical remedy for this whole that we should hold the Eliquis control blood pressure and observe. Patient initially was seen and had significant leukocytosis lactic acid was normal or actually having her on nicardipine now to manage her blood pressure because of concern for any intracranial bleeding. She is on been Eliquis for 4 days and her last dose was last night at around 1800. She has been started on vancomycin and Zosyn she had not previously had any urine cultures at her most recent hospitalization. Initially tried to transfer to [facility] they do not have any beds we tried [facility] they also do not have any beds at [facility] contacted back they had presented to the hospitalist service that can or considering her for ICU in which case they may have an available bed. We are waiting to hear back. Reevaluated her GCS is still best 4-5. She essentially remains completely obtunded. CT of the chest did not show any mass or abnormality that the chest x-ray had raised the concern of. The CT does show a question of osteomyelitis at the surgery site of the lumbar spine. We did examine the external wound he earlier there is no sign of erythema drainage or inflammation no wound dehiscence. Postoperatively there had been some drainage from the wound that was thought to be a seroma. That was within a few days of discharge. MRI was done at that time and there was no sign of infection. Troponin slightly elevated at the 2-hour zohra however due to the intracranial bleed no anticoagulation started. Patient intubated due to GCS and planned transfer. And were waiting to hear back with the ICU critical care doctor Has accepted her we are waiting on a bed assignment. After intubation nicardipine was stopped blood pressure well- controlled on the propofol and was no longer needed to maintain pressure. Care signed out to Dr. Gonzalez pending bed assignment and transfer. Pending along she is here she may need another dose of antibiotics. Medical Records I reviewed the patient's medical records. Lab Data I reviewed the patient's lab results. 12/13/23 13:30 12/13/23 13:[address] 12/13/23 12:49 IMPRESSION: Small amount of acute intraventricular hemorrhage within the dependent portion lateral ventricles of uncertain etiology as discussed above. ADDENDUM: 12/13/23 1675 THIS REPORT CONTAINS FINDINGS THAT MAY BE CRITICAL TO PATIENT CARE. The findings were verbally communicated via telephone conference with ATIF CORDOVA at 2:34 PM CDT on 12/13/2023. The findings were acknowledged and understood. Chest/Abdomen/Pelvis CT 12/13/23 14:24 IMPRESSION: 1. Cardiomegaly with small bilateral pleural effusions and adjacent passive atelectasis at the lung bases. 2. Negative for lung mass. IMPRESSION: 1. Limited study 2. Cholelithiasis with moderate distension of the gallbladder raising concern for cystic duct obstruction which could be better assessed on the hepatobilary scan and gallbladder ultrasound. 3. Moderate colonic distension that appears secondary to combination of constipation and ileus. 4. Mild perirectal edema/fluid that may be secondary to distension proctitis. 5. Small left inguinal hernia containing loop of large bowel without evidence of obstruction. 6. Extensive postoperative changes lumbar spine with bony and soft tissue changes L4-L5 concerning for osteomyelitis and soft tissue infection. Chest X-Ray 12/13/23 18:36 IMPRESSION: Interval placement of ET tube in satisfactory position. Laboratory Results WBC 19.28 10^3/uL (3.29-11.43) H 12/13/23 13:30 RBC 3.26 10^6/uL (3.85-5.65) L 12/13/23 13:30 Hgb 10.40 g/dL (11.27-16.99) L 12/13/23 13:30 Hct 32.4 % (36-47) L 12/13/23 13:30 MCV 99.4 fl (85-98) H 12/13/23 13:30 MCH 31.9 pg (27-33) 12/13/23 13:30 MCHC 32.1 g/dL (30-55) 12/13/23 13:30 RDW 14.6 % (12.1-15.1) 12/13/23 13:30 Plt Count 295 10^3/cmm (157-399) 12/13/23 13:30 MPV 10.2 fL (7.4-10.4) 12/13/23 13:30 Neut % (Auto) 91.1 % 12/13/23 13:30 Lymph % (Auto) 4.5 % 12/13/23 13:30 [place] % (Auto) 3.4 % 12/13/23 13:30 Eos % (Auto) 0.0 % 12/13/23 13:30 Baso % (Auto) 0.4 % 12/13/23 13:30 Neut # (Auto) 17.56 10^3/uL (1.8-7.7) H 12/13/23 13:30 Lymph # (Auto) 0.9 10^3/uL (0.8-4.8) 12/13/23 13:30 [place] # (Auto) 0.7 10^3/uL (0.2-0.9) 12/13/23 13:30 Eos # (Auto) 0.0 10^3/uL (0.0-0.8) 12/13/23 13:30 Baso # (Auto) 0.1 10^3/uL (0.0-0.1) 12/13/23 13:30 Nucleated RBC % (auto) 0.1 % 12/13/23 13:30 Nucleated RBCs # 0.0 /100WBC 12/13/23 13:30 Sodium 139 mmol/L (136-145) 12/13/23 13:30 Potassium 4.8 mmol/L (3.5-5.1) 12/13/23 13:30 Chloride 101 mmol/L (98-107) 12/13/23 13:30 Carbon Dioxide 27 mmol/L (22-29) 12/13/23 13:30 Anion Gap 15.8 (5-19) 12/13/23 13:30 BUN 18 mg/dL (8-23) 12/13/23 13:30 Creatinine 0.6 mg/dL (0.5-0.9) 12/13/23 13:30 GFR Calculation Not Reportable 12/13/23 13:30 Glucose 127 mg/dL (65-115) H 12/13/23 13:30 Calculated Osmolality 291 mOsm/kg (285-295) 12/13/23 13:30 Lactic Acid 1.4 mmol/L (0.5-2.2) 12/13/23 13:30 Calcium 9.3 mg/dL (8.5-10.5) 12/13/23 13:30 Magnesium 2.0 mg/dL (1.7-2.3) 12/13/23 13:30 Total Bilirubin 0.9 mg/dL (0.15-1.2) 12/13/23 13:30 AST 31 U/L (0-32) 12/13/23 13:30 ALT 25 U/L (0-33) 12/13/23 13:30 Alkaline Phosphatase 94 U/L (35-105) 12/13/23 13:30 Ammonia 12 umol/L (11-51) 12/13/23 13:30 Creatine Kinase 26 U/L (26-192) 12/13/23 13:30 Troponin T Baseline 40 ng/L (0-10) H 12/13/23 13:30 Troponin T 120 Minute 34.70 ng/L (0-10) H 12/13/23 16:13 Delta Troponin T -5.30 ABS# (0-10) L 12/13/23 16:13 Troponin T Hi Sens 6Hr 56.77 ng/L (0-10) H 12/13/23 19:11 Troponin T Hi Sens 6Hr Delta 16.77 ng/L (0-12) H* 12/13/23 19:11 Total Protein 5.6 g/dL (6.6-8.7) L 12/13/23 13:30 Albumin 3.1 g/dL (3.5-5.2) L 12/13/23 13:30 Globulin 2.5 g/dL (1.3-4.6) 12/13/23 13:30 Lipase 22 U/L (13-60) 12/13/23 13:30 Urine Color Yellow (Yellow) 12/13/23 14:46 Urine Appearance Clear (CLEAR) 12/13/23 14:46 Urine pH 7 (5-7) 12/13/23 14:46 Ur Specific [place] 1.015 (1.005-1.030) 12/13/23 14:46 Urine Protein 1+ (Negative) H 12/13/23 14:46 Urine Glucose (UA) Norm (Normal) 12/13/23 14:46 Urine Ketones Negative (Negative) 12/13/23 14:46 Urine Blood 3+ (Negative) H 12/13/23 14:46 Urine Nitrate Positive (Negative) H 12/13/23 14:46 Urine Bilirubin Neg (Negative) 12/13/23 14:46 Urine Urobilinogen Norm mg/dL (Negative) 12/13/23 14:46 Ur Leukocyte Esterase Trace (Negative) H 12/13/23 14:46 Urine RBC 5-10 /hpf (0-2) H 12/13/23 14:46 Urine WBC 15-25 /hpf (0-5) H 12/13/23 14:46 Ur Squamous Epith Cells 0-4 /hpf (0-5) H 12/13/23 14:46 Amorphous Sediment Not Reportable 12/13/23 14:46 Urine Bacteria 1+ /hpf (NONE) H 12/13/23 14:46 Adenovirus (PCR) Not detected (NOT DETECT) 12/13/23 19:01 C. pneumoniae DNA (PCR) Not detected (NOT DETECT) 12/13/23 19:01 Coronavirus 229E (PCR) Not detected (NOT DETECT) 12/13/23 19:01 Human Metapneumovir PCR Not detected (NOT DETECT) 12/13/23 19:01 Influenza A (H1) PCR Not detected (NOT DETECT) 12/13/23 19:01 Influ A (H1/09) PCR Not detected (NOT DETECT) 12/13/23 19: Influenza A (H3) PCR Not detected (NOT DETECT) 12/13/23 19:01 Influenza Type A (PCR) Not detected (NOT DETECT) 12/13/23 19:01 Influenza Type B (PCR) Not detected (NOT DETECT) 12/13/23 19:01 M. pneumoniae (PCR) Not detected (NOT DETECT) 12/13/23 19:01 Parainfluenza 1 (PCR) Not detected (NOT DETECT) 12/13/23 19:01 Parainfluenza 2 (PCR) Not detected (NOT DETECT) 12/13/23 19:01 Parainfluenza 3 (PCR) Not detected (NOT DETECT) 12/13/23 19:01 Parainfluenza 4 (PCR) Not detected (NOT DETECT) 12/13/23 19:01 RSV Type A (PCR) Not detected (NOT DETECT) 12/13/23 19:01 RSV Type B (PCR) Not detected (NOT DETECT) 12/13/23 19:01 Entero/Rhino (PCR) Not detected (NOT DETECT) 12/13/23 19:01 SARS-CoV-2 (PCR) Not detected (NOT DETECT) 12/13/23 19:01 Critical Care Time 2 Critical Care Time: Critical Care Time: Yes Total Critical Care Time: 60 Attestation: The high probability of a clinically significant, sudden or life threatening deterioration of the patient's cardiovascular respiratory and neurologic system(s) required my full and direct attention, intervention and personal management. The critical care time is as shown. This time is in addition to time spent performing any reported procedures but includes the following: [x] Data and vital sign review and interpretation [x] Patient assessment, examination and intervention [x] Documentation [x] Medication orders and management Discharge Plan Discharge Patient Disposition: Xfer Short-Term Hosp Clinical Impression: Delirium due to general medical condition, Cystitis, Osteomyelitis Condition: Stable Patient Instructions: Altered Mental Status (ED) Coding Level of Care Code ED Health And Safety Consultant for Chg Fwd Documented by User: New Gonzalez DO 12/14/23 02:35 HPI - Altered Mental Status 2 General: Chief Complaint: Altered Mental Status Stated Complaint: AMS Time Seen by Provider: 12/13/23 12:49 PFSH ED 2 PFSH: Medical History DDD (degenerative disc disease), lumbar Arthritis of left hip Sinusitis Nasal congestion Excessive cerumen in left ear canal Otitis externa Hearing decreased Otitis media Surgical History History of back surgery Family History Father Heart disease Myocardial infarction Social History Smoking and tobacco/nicotine status: never used tobacco/nicotine Second hand smoke exposure: No Alcohol intake: never Substance/Drug Use: never Physical Exam 2 Neuro: PANCHO COMA SCALE: document GCS findings [place] coma scale total score: 5 Course 2 Vital Signs: Vital signs: Vital Signs Temperature 101.2 F H 12/13/23 20:00 Pulse Rate 110 H 12/14/23 02:04 Respiratory Rate 20 H 12/14/23 02:04 Blood Pressure 91/58 12/14/23 02:04 Pulse Oximetry 100 12/14/23 02:04 Oxygen Delivery Me thod Mechanical Ventil ation 12/13/23 20:00 Oxygen Flow Rate 2 12/13/23 16:30 Fraction of Inspir ed Oxygen 100 04/20/24 18:28 MDM - Altered Mental Status Lab Data 12/13/23 13:30 12/13/23 13:[address] 12/13/23 12:49 IMPRESSION: Small amount of acute intraventricular hemorrhage within the dependent portion lateral ventricles of uncertain etiology as discussed above. ADDENDUM: 12/13/23 7855 THIS REPORT CONTAINS FINDINGS THAT MAY BE CRITICAL TO PATIENT CARE. The findings were verbally communicated via telephone conference with ATIF CORDOVA at 2:34 PM CDT on 12/13/2023. The findings were acknowledged and understood. Chest/Abdomen/Pelvis CT 12/13/23 14:24 IMPRESSION: 1. Cardiomegaly with small bilateral pleural effusions and adjacent passive atelectasis at the lung bases. 2. Negative for lung mass. IMPRESSION: 1. Limited study 2. Cholelithiasis with moderate distension of the gallbladder raising concern for cystic duct obstruction which could be better assessed on the hepatobilary scan and gallbladder ultrasound. 3. Moderate colonic distension that appears secondary to combination of constipation and ileus. 4. Mild perirectal edema/fluid that may be secondary to distension proctitis. 5. Small left inguinal hernia containing loop of large bowel without evidence of obstruction. 6. Extensive postoperative changes lumbar spine with bony and soft tissue changes L4-L5 concerning for osteomyelitis and soft tissue infection. Chest X-Ray 12/13/23 18:36 IMPRESSION: Interval placement of ET tube in satisfactory position. Laboratory Results WBC 19.28 10^3/uL (3.29-11.43) H 12/13/23 13:30 RBC 3.26 10^6/uL (3.85-5.65) L 12/13/23 13:30 Hgb 10.40 g/dL (11.27-16.99) L 12/13/23 13:30 Hct 32.4 % (36-47) L 12/13/23 13:30 MCV 99.4 fl (85-98) H 12/13/23 13:30 MCH 31.9 pg (27-33) 12/13/23 13:30 MCHC 32.1 g/dL (30-55) 12/13/23 13:30 RDW 14.6 % (12.1-15.1) 12/13/23 13:30 Plt Count 295 10^3/cmm (157-399) 12/13/23 13:30 MPV 10.2 fL (7.4-10.4) 12/13/23 13:30 Neut % (Auto) 91.1 % 12/13/23 13:30 Lymph % (Auto) 4.5 % 12/13/23 13:30 [place] % (Auto) 3.4 % 12/13/23 13:30 Eos % (Auto) 0.0 % 12/13/23 13:30 Baso % (Auto) 0.4 % 12/13/23 13:30 Neut # (Auto) 17.56 10^3/uL (1.8-7.7) H 12/13/23 13:30 Lymph # (Auto) 0.9 10^3/uL (0.8-4.8) 12/13/23 13:30 [place] # (Auto) 0.7 10^3/uL (0.2-0.9) 12/13/23 13:30 Eos # (Auto) 0.0 10^3/uL (0.0-0.8) 12/13/23 13:30 Baso # (Auto) 0.1 10^3/uL (0.0-0.1) 12/13/23 13:30 Nucleated RBC % (auto) 0.1 % 12/13/23 13:30 Nucleated RBCs # 0.0 /100WBC 12/13/23 13:30 Sodium 139 mmol/L (136-145) 12/13/23 13:30 Potassium 4.8 mmol/L (3.5-5.1) 12/13/23 13:30 Chloride 101 mmol/L (98-107) 12/13/23 13:30 Carbon Dioxide 27 mmol/L (22-29) 12/13/23 13:30 Anion Gap 15.8 (5-19) 12/13/23 13:30 BUN 18 mg/dL (8-23) 12/13/23 13:30 Creatinine 0.6 mg/dL (0.5-0.9) 12/13/23 13:30 GFR Calculation Not Reportable 12/13/23 13:30 Glucose 127 mg/dL (65-115) H 12/13/23 13:30 Calculated Osmolality 291 mOsm/kg (285-295) 12/13/23 13:30 Lactic Acid 1.4 mmol/L (0.5-2.2) 12/13/23 13:30 Calcium 9.3 mg/dL (8.5-10.5) 12/13/23 13:30 Magnesium 2.0 mg/dL (1.7-2.3) 12/13/23 13:30 Total Bilirubin 0.9 mg/dL (0.15-1.2) 12/13/23 13:30 AST 31 U/L (0-32) 12/13/23 13:30 ALT 25 U/L (0-33) 12/13/23 13:30 Alkaline Phosphatase 94 U/L (35-105) 12/13/23 13:30 Ammonia 12 umol/L (11-51) 12/13/23 13:30 Creatine Kinase 26 U/L (26-192) 12/13/23 13:30 Troponin T Baseline 40 ng/L (0-10) H 12/13/23 13:30 Troponin T 120 Minute 34.70 ng/L (0-10) H 12/13/23 16:13 Delta Troponin T -5.30 ABS# (0-10) L 12/13/23 16:13 Troponin T Hi Sens 6Hr 56.77 ng/L (0-10) H 12/13/23 19:11 Troponin T Hi Sens 6Hr Delta 16.77 ng/L (0-12) H* 12/13/23 19:11 Total Protein 5.6 g/dL (6.6-8.7) L 12/13/23 13:30 Albumin 3.1 g/dL (3.5-5.2) L 12/13/23 13:30 Globulin 2.5 g/dL (1.3-4.6) 12/13/23 13:30 Lipase 22 U/L (13-60) 12/13/23 13:30 Urine Color Yellow (Yellow) 12/13/23 14:46 Urine Appearance Clear (CLEAR) 12/13/23 14:46 Urine pH 7 (5-7) 12/13/23 14:46 Ur Specific [place] 1.015 (1.005-1.030) 12/13/23 14:46 Urine Protein 1+ (Negative) H 12/13/23 14:46 Urine Glucose (UA) Norm (Normal) 12/13/23 14:46 Urine Ketones Negative (Negative) 12/13/23 14:46 Urine Blood 3+ (Negative) H 12/13/23 14:46 Urine Nitrate Positive (Negative) H 12/13/23 14:46 Urine Bilirubin Neg (Negative) 12/13/23 14:46 Urine Urobilinogen Norm mg/dL (Negative) 12/13/23 14:46 Ur Leukocyte Esterase Trace (Negative) H 12/13/23 14:46 Urine RBC 5-10 /hpf (0-2) H 12/13/23 14:46 Urine WBC 15-25 /hpf (0-5) H 12/13/23 14:46 Ur Squamous Epith Cells 0-4 /hpf (0-5) H 12/13/23 14:46 Amorphous Sediment Not Reportable 12/13/23 14:46 Urine Bacteria 1+ /hpf (NONE) H 12/13/23 14:46 Adenovirus (PCR) Not detected (NOT DETECT) 12/13/23 19:01 C. pneumoniae DNA (PCR) Not detected (NOT DETECT) 12/13/23 19:01 Coronavirus 229E (PCR) Not detected (NOT DETECT) 12/13/23 19:01 Human Metapneumovir PCR Not detected (NOT DETECT) 12/13/23 19:01 Influenza A (H1) PCR Not detected (NOT DETECT) 12/13/23 19:01 Influ A (H1/09) PCR Not detected (NOT DETECT) 12/13/23 19:01 Influenza A (H3) PCR Not detected (NOT DETECT) 12/13/23 19:01 Influenza Type A (PCR) Not detected (NOT DETECT) 12/13/23 19:01 Influenza Type B (PCR) Not detected (NOT DETECT) 12/13/23 19:01 M. pneumoniae (PCR) Not detected (NOT DETECT) 12/13/23 19:01 Parainfluenza 1 (PCR) Not detected (NOT DETECT) 12/13/23 19:01 Parainfluenza 2 (PCR) Not detected (NOT DETECT) 12/13/23 19:01 Parainfluenza 3 (PCR) Not detected (NOT DETECT) 12/13/23 19:01 Parainfluenza 4 (PCR) Not detected (NOT DETECT) 12/13/23 19:01 RSV Type A (PCR) Not detected (NOT DETECT) 12/13/23 19:01 RSV Type B (PCR) Not detected (NOT DETECT) 12/13/23 19:01 Entero/Rhino (PCR) Not detected (NOT DETECT) 12/13/23 19:01 SARS-CoV-2 (PCR) Not detected (NOT DETECT) 12/13/23 19:01 All radiology interpretation(s) finalized by discharge Discharge Plan Discharge Patient Disposition: Xfer Short-Term Hosp Clinical Impression: Delirium due to general medical condition, Cystitis, Osteomyelitis Condition: Stable Patient Instructions: Altered Mental Status (ED) Coding Level of Care Code ED Health And Safety Consultant for Sherlyn Boss
[2023-12-13 14:04] LABS: Basophils # 0.1 10^3/uL (0.0-0.1); Basophils % 0.4 %; Hematocrit 32.4 % (36-47); Lymphocytes # 0.9 10^3/uL (0.8-4.8); Lymphocytes % 4.5 %; Mean Corpuscular HGB Conc 32.1 g/dL (30-55); Mean Corpuscular Hemoglobin 31.9 pg (27-33); Mean Corpuscular Volume 99.4 fl (85-98); Mean Platelet Volume 10.2 fL (7.4-10.4); Monocytes # 0.7 10^3/uL (0.2-0.9); Monocytes % 3.4 %; Neutrophils # 17.56 10^3/uL (1.8-7.7); Neutrophils % 91.1 %; Nucleated Red Blood Cells % 0.1 %; Platelet Count 295 10^3/cmm (157-399); Red Blood Count 3.26 10^6/uL (3.85-5.65); Red Cell Distribution Width 14.6 % (12.1-15.1); White Blood Count 19.28 10^3/uL (3.29-11.43)
[2023-12-13 14:20] LABS: Ammonia 12 umol/L (11-51)
[2023-12-13 14:23] LABS: Troponin(5th) Baseline 40 ng/L (0-10)
--- NOTE | 2023-12-13 14:24 | CTR_ITS ---
PROCEDURE INFORMATION: Exam: CT Chest With Contrast; Diagnostic Exam date and time: 12/13/2023 3:31 PM Age: 83 years old Clinical indication: Other: Altered/abd pain/lung mass TECHNIQUE: Imaging protocol: Diagnostic computed tomography of the chest with contrast. Radiation optimization: All CT scans at this facility use at least one of these dose optimization techniques: automated exposure control; mA and/or kV adjustment per patient size (includes targeted exams where dose is matched to clinical indication); or iterative reconstruction. Contrast material: OMNI 350; Contrast volume: 100 ml; Contrast route: INTRAVENOUS (IV); COMPARISON: CR (CHEST, ) 12/13/2023 12:59 PM RADIATION DOSE METRICS: Total DLP (mGy-cm): 1310.14 FINDINGS: Limitations: Study is technically limited due to motion artifact. Lungs: Small bilateral pleural effusions with adjacent passive atelectasis lower lung zones. Remaining lung youngblood are clear. No evidence of lung mass. Pleural spaces: See Lungs finding. Heart: Heart is moderately enlarged. Mild calcification of the LAD. It tubular shaped density within the left circumflex and may be due to calcification or stent graft. No significant pericardial effusion. Lymph nodes: No significant mediastinal, hilar or axillary lymphadenopathy. Vasculature: Thoracic aorta is unremarkable. No aortic aneurysm or evidence of aortic dissection. Bones/joints: Unremarkable. No acute fracture. Soft tissues: Unremarkable. PROCEDURE INFORMATION: Exam: CT Abdomen And Pelvis With Contrast Exam date and time: 12/13/2023 3:31 PM Age: 83 years old Clinical indication: Other: Altered/abd pain/lung mass TECHNIQUE: Imaging protocol: Computed tomography of the abdomen and pelvis with contrast. Radiation optimization: All CT scans at this facility use at least one of these dose optimization techniques: automated exposure control; mA and/or kV adjustment per patient size (includes targeted exams where dose is matched to clinical indication); or iterative reconstruction. Contrast material: OMNI 350; Contrast volume: 100 ml; Contrast route: INTRAVENOUS (IV); COMPARISON: MR lumbar spine wo con* [id number] 12/09/2023 12:50 PM RADIATION DOSE METRICS: Total DLP (mGy-cm): 1310.14 FINDINGS: Limitations: Study is technically limited due to motion artifact. Lungs: Please refer to discussion of CT chest exam. Liver: There are few small hypodensities within the liver too small to adequately characterize but statistically likely representing small liver cysts. Gallbladder and bile ducts: Gallbladder is significantly distended measuring 12 x 5 cm with few small gallstones in the dependent portion. Bile ducts are not dilated. Pancreas: Unremarkable. Main pancreatic duct is not significantly dilated. Spleen: Normal. No splenomegaly. Adrenal glands: Normal. No mass. Kidneys and ureters: There are few small hypodensities both kidneys some of which are too small to adequately characterize but statistically likely benign, otherwise kidneys are unremarkable. Stomach and bowel: Moderate colonic distension with retained stool in bowel gas that may be secondary to combination of colonic ileus and constipation. Rectum is also distended with gas. There is perirectal fluid/edema more apparent posterior to the rectal wall which is not abnormally thickened. Findings are of uncertain etiology but may be secondary distension proctitis. Appendix: No evidence of appendicitis. Intraperitoneal space: Unremarkable. No free air. No significant fluid collection. Vasculature: Unremarkable. No abdominal aortic aneurysm. Lymph nodes: Unremarkable. No enlarged lymph nodes. Urinary bladder: There is a Reyes catheter balloon within the urinary bladder which is collapsed and difficult to further assess. Reproductive: Unremarkable as visualized. Bones/joints: Extensive spinal instrumentation throughout the lumbar spine extending from L2 through S1 with posterior spinal decompression L2-L3 through L5-S1. There is soft tissue swelling in some inflammatory changes at the laminectomy site and insinuating around the left posterior elements with some osteolysis involving the inferior endplate of L4 vertebral body as well as the left posterior elements L4-L5 concerning for osteomyelitis and soft tissue infection. There are superimposed degenerative changes lower lumbar spine more pronounced left of midline. Soft tissues: Left inguinal hernia containing loop of large bowel without evidence of obstruction. CT/CT chest abdpel w/*[id number] IMPRESSION: 1. Cardiomegaly with small bilateral pleural effusions and adjacent passive atelectasis at the lung bases. 2. Negative for lung mass. IMPRESSION: 1. Limited study 2. Cholelithiasis with moderate distension of the gallbladder raising concern for cystic duct obstruction which could be better assessed on the hepatobilary scan and gallbladder ultrasound. 3. Moderate colonic distension that appears secondary to combination of constipation and ileus. 4. Mild perirectal edema/fluid that may be secondary to distension proctitis. 5. Small left inguinal hernia containing loop of large bowel without evidence of obstruction. 6. Extensive postoperative changes lumbar spine with bony and soft tissue changes L4-L5 concerning for osteomyelitis and soft tissue infection.
[2023-12-13 14:25] LABS: Lactic Sepsis W/Reflex 1.4 mmol/L (0.5-2.2)
[2023-12-13 14:29] LABS: Alanine Aminotransferase 25 U/L (0-33); Albumin Level 3.1 g/dL (3.5-5.2); Alkaline Phosphatase 94 U/L (35-105); Anion Gap 15.8 (5-19); Aspartate Amino Transferase 31 U/L (0-32); Blood Urea Nitrogen 18 mg/dL (8-23); Calcium 9.3 mg/dL (8.5-10.5); Carbon Dioxide 27 mmol/L (22-29); Chloride 101 mmol/L (98-107); Creatine Phosphokinase 26 U/L (26-192); Globulin 2.5 g/dL (1.3-4.6); Glucose 127 mg/dL (65-115); Lipase 22 U/L (13-60); Osmolality Calculated 291 mOsm/kg (285-295); Potassium 4.8 mmol/L (3.5-5.1); Sodium 139 mmol/L (136-145); Total Bilirubin 0.9 mg/dL (0.15-1.2); Total Protein 5.6 g/dL (6.6-8.7)
[2023-12-13] MEDS: vancomycin 1,000 MG in sodium chloride 0.9% 250 ML 250 MG IV (14:34)
[2023-12-13] MEDS: piperacillin-tazobactam 3.375 GM in sodium chloride 0.9% (plus) 50 ML IV (14:34)
--- NOTE | 2023-12-13 14:50 | ECG_ITS ---
[facility] Test Date: 2023-12-13 Pat Name: Anjali Khan Department: Room: Gender: Female Registered Nurse Post Partum: : 1940 Requested By: Atif Gardner Order Number: [id number] Reading MD: Saji August M.D. Measurements Intervals [place] Rate: 99 P: 0 GA: 0 QRS: 99 QRSD: 85 T: 102 QT: 340 QTc: 437 Interpretive Statements SUPRAVENTRICULAR RHYTHM with significant baseline artifact BORDERLINE RIGHT AXIS DEVIATION [QRS AXIS > 90] Possible LATERAL MYOCARDIAL INFARCTION , OF INDETERMINATE AGE [40+ ms Q WAVE AND/OR ST/T ABNORMALITY IN I/aVL/V5/V6] Compared to ECG 12/13/2023 12:59:18 Supraventricular rhythm now present Myocardial infarct possibly present Baseline artifact significantly impairs sensitivity Electronically Signed On 12-14-2023 8:15:57 CDT by Saji August M.D. [id number]
[2023-12-13] MEDS: nicardipine 20 MG/200 ML PREMIX 50 MG IV (14:52)
--- NOTE | 2023-12-13 14:52 | PC.PHAR ---
Addendum entered by Pilar Montilla 12/13/23 14:56: VERIFIED WITH TONY CARRERA- MEDS WERE STRICKEN FROM TODAYS MAR DUE TO NURSE NOT COMFORTABLE GIVING THEM FOR CHOKING REASONS. Original Note: MAR SHOWS PT WAS GIVEN MORNING MEDICATIONS TODAY 12/13/23. WHEN POOL CALLED FOR VERIFICATION-NURSE STATED PT HAS NOT HAD ANY MEDICATIONS TODAY.
[2023-12-13 15:10] LABS: Add Urine Microscopic? YES; Bilirubin Urine Neg (Negative); Blood Urine 3+ (Negative); Glucose Urine UA Norm (Normal); Ketones Urine Negative (Negative); Leukocyte Esterase Urine Trace (Negative); Nitrate Urine Positive (Negative); Protein Urine 1+ (Negative); Specific Gravity, Urine 1.015 (1.005-1.030); Squamous Epithelial Cell Urine 0-4 /hpf (0-5); Urine Appearance Clear (CLEAR); Urine Color Yellow (Yellow); Urobilinogen Urine Norm (Negative); WBC Urine 15-25 /hpf (0-5); pH Urine 7 (5-7)
[2023-12-13 15:11] LABS: Add Urine Culture? Yes; Bacteria Urine 1+ /hpf
[2023-12-13] MEDS: iohexol 350 mg/mL 500 mL Btl (per mL) IV (15:33)
[2023-12-13] MEDS: fentaNYL 50 mcg/mL INJ 2mL 25 MCG IVP ×2 (15:52→17:45)
[2023-12-13] MEDS: acetaminophen 1,000 MG/100 ML PIGGYBACK 400 MG IV (15:54)
[2023-12-13] MEDS: ketorolac 30 mg/mL INJ 15 MG IVP (17:41)
[2023-12-13] MEDS: etomidate 2 mg/mL INJ SDV 10 mL 10 MG IVP (18:17)
[2023-12-13] MEDS: succinylcholine 20 mg/mL SDV 10mL 90 MG IVP (18:18)
--- NOTE | 2023-12-13 18:36 | XRR_ITS ---
PROCEDURE INFORMATION: Exam: XR Chest Exam date and time: 12/13/2023 6:33 PM Age: 83 years old Clinical indication: Device placement; Ett placement (vent status) TECHNIQUE: Imaging protocol: Radiologic exam of the chest. Views: 1 view. COMPARISON: CT chest abdpel w/*[id number] 12/13/2023 3:31 PM FINDINGS: Tubes, catheters and devices: Patient has undergone placement of an ET tube whose tip terminates approximately 5 cm above the moe in adequate position. Lungs: See Pleural spaces finding. Pleural spaces: There are bibasilar opacities unchanged shown to represent bibasilar effusions and atelectasis. Heart/Mediastinum: Heart is enlarged, unchanged. Bones/joints: Unremarkable for age. XR/XR chest 1V portable [id number] IMPRESSION: Interval placement of ET tube in satisfactory position.
[2023-12-13] MEDS: propofol 1,000 MG/100 ML INJ 1.84000000000000008 MG IV (18:45)
--- NOTE | 2023-12-13 18:50 | ECG_ITS ---
[facility] Test Date: 2023-12-13 Pat Name: Anjali Khan Department: Room: Gender: Female Documentation Designer: : 1940 Requested By: Atif Gardner Order Number: [id number] Yumiko MD: Saji August M.D. Measurements Intervals [place] Rate: 112 P: 0 NC: 0 QRS: 77 QRSD: 77 T: 136 QT: 333 QTc: 456 Interpretive Statements ATRIAL FIBRILLATION WITH RAPID VENTRICULAR RESPONSE MINIMAL ST DEPRESSION [0.025+ mV ST DEPRESSION] ABNORMAL RHYTHM ECG Compared to ECG 12/13/2023 14:58:30 ST (T wave) deviation now present Supraventricular rhythm no longer present Myocardial infarct finding no longer present Electronically Signed On 12-14-2023 8:16:49 CDT by Saji August M.D. [id number]
[2023-12-13] MEDS: fentaNYL 1,000 MCG/100 ML BAG 2.5 MCG IV (19:20)
[2023-12-13 19:54] LABS: Troponin 5 6HR 56.77 ng/L (0-10)
[2023-12-13 19:56] LABS: Troponin 5 6HR Delta 16.77 ng/L (0-12)
[2023-12-13 21:11] LABS: Adenovirus Not Detected (NOT DETECT); Chlamydia Pneumoniae Not Detected (NOT DETECT); Coronavirus 229E,HKU1,NL63,OC4 Not Detected (NOT DETECT); Human Metapneumovirus Not Detected (NOT DETECT); Human Rhinovirus/Enterovirus Not Detected (NOT DETECT); Influenza A Not Detected (NOT DETECT); Influenza A H1 Not Detected (NOT DETECT); Influenza A H1-2009 Not Detected (NOT DETECT); Influenza A H3 Not Detected (NOT DETECT); Influenza B Not Detected (NOT DETECT); Mycoplasma Pneumoniae Not Detected (NOT DETECT); Parainfluenza Virus Type 1 Not Detected (NOT DETECT); Parainfluenza Virus Type 2 Not Detected (NOT DETECT); Parainfluenza Virus Type 3 Not Detected (NOT DETECT); Parainfluenza Virus Type 4 Not Detected (NOT DETECT); Respiratory Syncytial Virus A Not Detected (NOT DETECT); Respiratory Syncytial Virus B Not Detected (NOT DETECT); SARS-COV-2 Not Detected (NOT DETECT)
--- NOTE | 2023-12-14 02:01 | PC.NURSE ---
pt care pt og tube attempted x3. pt started on fent drip. pt restraints placed.
[2023-12-14 02:04] VITALS: BP 91/58; PULSE 110; RESP 20; O2SAT 100
[2023-12-14 04:55] LABS: Acinetobacter baumannii Not Detected (NOT DETECT); Bacteroides fragilis Not Detected (NOT DETECT); CTX-M Not Detected (NOT DETECT); Citrobacter Not Detected (NOT DETECT); Cronobacter sakazakii Not Detected (NOT DETECT); Enterobacter cloacae complex Not Detected (NOT DETECT); Enterobacter non cloacae Not Detected (NOT DETECT); Fusobacterium necrophorum Not Detected (NOT DETECT); Fusobacterium nucleatum Not Detected (NOT DETECT); Haemophilus influenzae Not Detected (NOT DETECT); IMP Resistance Gene Not Detected (NOT DETECT); KPC Resistance Gene Not Detected (NOT DETECT); Klebsiella pneumoniae group Not Detected (NOT DETECT); Morganella morganii Not Detected (NOT DETECT); NDM Resistance Gene Not Detected (NOT DETECT); Neisseria meningitidis Not Detected (NOT DETECT); OXA Resistance Gene Not Detected (NOT DETECT); Pan Candida Not Detected (NOT DETECT); Pan Gram-Positive Not Detected (NOT DETECT); Proteus mirabilis Not Detected (NOT DETECT); Pseudomonas aeruginosa Not Detected (NOT DETECT); Salmonella Not Detected (NOT DETECT); Serratia Not Detected (NOT DETECT); Serratia marcescens Not Detected (NOT DETECT); Stenotrophomonas maltophilia Not Detected (NOT DETECT); VIM Resistance Gene Not Detected (NOT DETECT)
--- NOTE | 2023-12-18 03:41 | PC.NURSE ---
Contacted Rowena Camara and relayed info regarding pts blood culture results. results given to Martin MORENO.
== END 2023-12-13 22:00 | disposition short-term general hospital (02) ==
PROVIDERS: Emergency Provider Family Medicine
DX: N30.90 Cystitis, unspecified without hematuria (principal); F05 Delirium due to known physiological condition; M86.9 Osteomyelitis, unspecified; D72.829 Elevated white blood cell count, unspecified; Z11.52 Encounter for screening for COVID-19; Z98.890 Other specified postprocedural states
CPT/HCPCS: 31500; 36415; 70450; 71045; 71260; 74177; 80053; 81001; 82140; 82550; 83605; 83690; 83735; 84484; 85025; 87040; 87077; 87086; 87150; 87186; 87205; 87486; 87581; 87633; 93005; 94002; 94799; 96365; 96366; 96367; 96375; 96376; 99291; J0131; J0330; J1885; J2543; J2704; J3010; J3370; J3490; J7050; Q9967